=== PATIENT | female | born 1955 | race Caucasian/White ===

== ENCOUNTER 2020-12-25 08:47 | Outpatient (REF) | payer MEDICARE, BC, SELFPAY ==
[2020-12-25 10:05] LABS: MANUAL DIFF FLAG NO
[2020-12-25 10:19] LABS: Basophils Absolute Auto 0.1 X10*3/uL (0.0-0.2); Basophils Percent Auto 1.5 % (0-2); Eosinophils Absolute Auto 0.2 X10*3/uL (0.0-0.4); Eosinophils Percent Auto 6.6 % (0-4); Hematocrit 37.7 % (37-47); Hemoglobin 12.6 g/dl (12.0-16.0); Imm Gran Abs Auto 0.01 X10*3/uL (0.00-0.03); Imm Gran Pct Auto 0.3 % (0.0-0.4); Lymphocytes Absolute Auto 0.8 X10*3/uL (1.2-4.9); Lymphocytes Percent Auto 24.2 % (20-40); Mean Corpuscular HGB Conc 33.4 g/dl (31.0-35.0); Mean Corpuscular Hemoglobin 31.7 pg (27.0-33.0); Mean Corpuscular Volume 94.7 fL (80-98); Mean Platelet Volume 10.2 fL (9.4-12.3); Monocytes Absolute Auto 0.4 X10*3/uL (0.1-1.2); Monocytes Percent Auto 12.8 % (2-11); Neutrophils Absolute Auto 1.8 X10*3/uL (2.0-8.3); Neutrophils Percent Auto 54.6 % (45-73); Platelet Count 215 X10*3/uL (160-400); Red Blood Count 3.98 X10*6/uL (4.20-5.50); Red Cell Distribution Width 11.7 % (11.0-16.0); White Blood Count 3.4 X10*3/uL (4.8-10.8)
[2020-12-25 10:36] LABS: Glucose Urine UA NEG (NEG); Leukocyte Esterase Urine TRACE (NEG); Nitrite Urine NEG (NEG); UACC Culture Trigger YES; Urine Blood NEG (NEG); Urine Ketones NEG (NEG); Urine Protein NEG (NEG-TRACE)
[2020-12-25 10:45] LABS: Appearance Urine CLEAR; Color Urine STRAW
[2020-12-25 11:07] LABS: Alanine Aminotransferase 21 U/L (0-31); Albumin Level 4.2 g/dL (3.5-5.0); Alkaline Phosphatase 64 U/L (39-117); Anion Gap 12 (12-20); Aspartate Amino Transferase 22 U/L (5-31); Bilirubin Total 0.9 mg/dL (0.0-1.0); Blood Urea Nitrogen 16 mg/dL (9-16); Calcium 9.3 mg/dL (8.4-10.2); Carbon Dioxide 27 mmol/L (22-29); Chloride 104 mmol/L (96-108); Cholesterol 167 mg/dL; Estimated Glomerular Filt Rate > 60; Glucose Fasting 102 mg/dL (60-99); HDL Cholesterol 61 mg/dL; LDL Cholesterol Calculated 97 mg/dl; Potassium 4.1 mmol/L (3.3-5.1); Sodium 139 mmol/L (135-145); Total Protein 6.4 g/dL (6.5-8.0); Triglycerides 48 mg/dL
[2020-12-25 11:13] LABS: TSH reflex Free T4 1.04 uIU/mL (0.32-4.0)
[2020-12-25 11:26] LABS: RBC Urine 0-2 /HPF (0); Squamous Epithelial Cell Urine TRACE /LPF; WBC Urine 0 /HPF (0-4)
[2020-12-25 11:27] LABS: Renal Epithelial Cells Urine TRACE /LPF
== END 2020-12-25 08:48 | disposition home or self-care (01) ==
LOC: HO.LAB 08:47
PROVIDERS: PCP Internal Medicine; Visit Provider Internal Medicine
DX: I10 Essential (primary) hypertension (principal); E78.00 Pure hypercholesterolemia, unspecified
CPT/HCPCS: 36415; 80053; 80061; 81001; 84443; 85025; 87086

== ENCOUNTER 2022-01-03 07:27 | Outpatient (REF) | payer MEDICARE, BC, SELFPAY ==
[2022-01-03 08:49] LABS: Anion Gap 13 (12-20); Blood Urea Nitrogen 16 mg/dL (9-16); Calcium 8.8 mg/dL (8.4-10.2); Carbon Dioxide 28 mmol/L (22-29); Chloride 100 mmol/L (96-108); Estimated Glomerular Filt Rate > 60; Glucose Fasting 97 mg/dL (60-99); Potassium 3.8 mmol/L (3.3-5.1); Sodium 137 mmol/L (135-145)
== END 2022-01-03 07:28 | disposition home or self-care (01) ==
LOC: HO.LAB 07:27
PROVIDERS: PCP Internal Medicine; Visit Provider Nurse Practitioner Family
DX: R73.01 Impaired fasting glucose (principal)
CPT/HCPCS: 36415; 80048

== ENCOUNTER 2022-11-21 08:55 | Outpatient (REF) | payer MEDICARE, BC, SELFPAY ==
--- NOTE | 2022-11-21 09:06 | ECG_ITS ---
Test Reason : PRE OP Blood Pressure : / mmHG Vent. Rate : 062 BPM Atrial Rate : 062 BPM P-R Int : 166 ms QRS Dur : 088 ms QT Int : 378 ms P-R-T Axes : 065 004 052 degrees QTc Int : 383 ms Normal sinus rhythm Normal ECG No previous ECGs available Referred By: Stefania Vargas Electronically Signed By:ROZ FRANK MD
[2022-11-21 09:52] LABS: Prothrombin Time 11.4 SEC (10.0-13.1)
[2022-11-21 11:27] LABS: TSH reflex Free T4 1.18 uIU/mL (0.32-4.0)
[2022-11-21 12:23] LABS: Alanine Aminotransferase 15 U/L (0-31); Alkaline Phosphatase 48 U/L (39-117); Anion Gap 13 (12-20); Aspartate Amino Transferase 24 U/L (5-31); Bilirubin Total 0.9 mg/dL (0.0-1.0); Blood Urea Nitrogen 15 mg/dL (9-16); Calcium 9.6 mg/dL (8.4-10.2); Carbon Dioxide 26 mmol/L (22-29); Chloride 96 mmol/L (96-108); Estimated Glomerular Filt Rate > 60; Glucose Random 113 mg/dL (60-115); Potassium 4.3 mmol/L (3.3-5.1); Sodium 131 mmol/L (135-145); Total Protein 6.9 g/dL (6.5-8.0)
[2022-11-21 13:50] LABS: MANUAL DIFF FLAG NO
[2022-11-21 14:28] LABS: Basophils Absolute Auto 0.1 X10*3/uL (0.0-0.2); Basophils Percent Auto 1.4 % (0-2); Eosinophils Absolute Auto 0.2 X10*3/uL (0.0-0.4); Eosinophils Percent Auto 3.7 % (0-4); Hematocrit 36.8 % (37.0-47.0); Hemoglobin 12.3 g/dl (12.0-16.0); Imm Gran Abs Auto 0.02 X10*3/uL (0.00-0.03); Imm Gran Pct Auto 0.4 % (0.0-0.4); Lymphocytes Percent Auto 19.3 % (20-40); Mean Corpuscular HGB Conc 33.4 g/dl (31.0-35.0); Mean Corpuscular Hemoglobin 31.8 pg (27.0-33.0); Mean Corpuscular Volume 95.1 fL (80.0-98.0); Mean Platelet Volume 9.4 fL (9.4-12.3); Monocytes Absolute Auto 0.5 X10*3/uL (0.1-1.2); Monocytes Percent Auto 10.5 % (2-11); Neutrophils Absolute Auto 3.2 x10*3/uL (2.0-8.3); Neutrophils Percent Auto 64.7 % (45-73); Platelet Count 254 X10*3/uL (160-400); Red Blood Count 3.87 X10*6/uL (4.20-5.50); Red Cell Distribution Width 11.7 % (11.0-16.0); White Blood Count 4.9 X10*3/uL (4.8-10.8)
[2022-11-21 15:46] LABS: Anion Gap 11 (12-20); Blood Urea Nitrogen 16 mg/dL (9-16); Calcium 10.3 mg/dL (8.4-10.2); Carbon Dioxide 28 mmol/L (22-29); Chloride 94 mmol/L (96-108); Estimated Glomerular Filt Rate > 60; Glucose Random 104 mg/dL (60-115); Sodium 129 mmol/L (135-145)
== END 2022-11-21 08:56 | disposition home or self-care (01) ==
LOC: HO.LAB 08:55
PROVIDERS: PCP Internal Medicine; Visit Provider Nurse Practitioner Family
DX: Z01.818 Encounter for other preprocedural examination (principal)
CPT/HCPCS: 36415; 80048; 80053; 84443; 85025; 85610; 93005

== ENCOUNTER → 2022-11-21 09:06 | Outpatient (BNV) | payer MEDICARE, BC, SELFPAY | PROVIDERS: PCP Internal Medicine; Visit Provider Internal Medicine Cardiovascular Disease | DX: I10 Essential (primary) hypertension (principal); Z01.818 Encounter for other preprocedural examination | CPT/HCPCS: 93010 ==

== ENCOUNTER 2022-11-21 13:11 | Outpatient (AMB) | payer MEDICARE, BC, SELFPAY ==
[2022-11-21 13:15] VITALS: BP 130/72; PULSE 61; O2SAT 98; BMI 31.6
--- NOTE | 2022-11-21 13:15 | MHC.PC.OV ---
Vital Signs 11/21/22 13:15 Height 5 ft 3 in Weight 178 lb 6 oz BMI 31.6 BP 130/72 Blood Pressure Location Lt brachial Position Sitting Pulse 61 Pulse Source Pulse Oximeter Pulse Oximetry (%) 98 Oxygen Delivery Method Room Air Intake Visit Reasons: Biopsy and tear duct surgery-11/26 Clinic Md Associate Required: No Accompanied by: Self / Same As Patient Allergies Tape (adhesive) Allergy (Unknown, Uncoded 12/31/21 09:10) Itching Tobacco use date assessed: 11/21/22 Fall risk assessment: No Falls in past year Last assessed Fall Risk: 11/21/22 Dental Screening Dental Screen Date: 11/21/22 Did you have a dental visit in the last 12 months?: Yes Did you have a dental problem in the last 6 months where you did not have access to dental care?: No Was dental information given to patient?: Patient has dentist HPI HPI Comments History of Present Illness Details 67-year-old female past medical history significant for hypertension, hyperlipidemia, lumbar degenerative disc disease. Patient Dr. Willson presents today for preop visit for biopsy and tear duct surgery under [facility] on 11/26/2022 Dr. Garcia. Denies prior complications to being under anesthesia. Denies CP, palpitations, sob and syncope. EKG normal sinus rhythm Laboratory Tests 11/21/22 11/21/22 11/21/22 13:49 Unknown Unknown WBC 4.9 RBC 3.87 L Hgb 12.3 Hct 36.8 L MCV 95.1 MCH 31.8 MCHC 33.4 RDW 11.7 Plt Count 254 MPV 9.4 Immature Gran % (A uto) 0.4 Neut % (Auto) 64.7 Lymph % (Auto) 19.3 L [place] % (Auto) 10.5 Eos % (Auto) 3.7 Baso % (Auto) 1.4 Lymph # (Auto) 1.0 L [place] # (Auto) 0.5 Eos # (Auto) 0.2 Baso # (Auto) 0.1 Abs Immat Gran (au to) 0.02 Absolute Neuts (au to) 3.2 Absolute Nucleated RBC 0.000 Nucleated RBC % (a uto) 0.0 PT 11.4 INR 1.0 Sodium 131 L Potassium 4.3 Chloride 96 Carbon Dioxide 26 Anion Gap 13 BUN 15 Creatinine 0.78 Estimated GFR > 60 Random Glucose 113 Calcium 9.6 D Total Bilirubin 0.9 AST 24 ALT 15 Alkaline Phosphata se 48 Total Protein 6.9 Albumin 4.0 TSH 1.18 PFSH Medical History 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 History of right breast cancer Surgical History History of colonoscopy History of tonsillectomy Family History Mother Melanoma Father Lung cancer Sister Breast cancer Brother Prostate cancer Social History Housing: House Alcohol intake: current Alcohol intake frequency: holidays/special occasions only Patient Tobacco Use Status: Never used Tobacco e-Cigarette/Vaping Use: Never Used service: No Current occupational status: retired Current occupational exposures/hazards: No Cognitive needs: No Hearing needs: No Vision needs: No Questionnaire PHQ-9 Over the last 2 weeks, how often have you been bothered by any of the following problems? 1. Little interest or pleasure in doing things: not at all 2. Feeling down, depressed, or hopeless: not at all 3. Trouble falling or staying asleep, or sleeping too much: not at all 4. Feeling tired or having little energy: not at all 5. Poor appetite or overeating: not at all 6. Feeling bad about yourself - or that you are a failure or have let yourself or your family down: not at all 7. Trouble concentrating on things, such as reading the newspaper or watching television: not at all 8. Moving or speaking so slowly that other people could have noticed. Or the opposite - being so fidgety or restless that you have been moving around a lot more than usual: not at all 9. Thoughts that you would be better off or of hurting yourself in some way: not at all Total score: 0 Depression Screening Interpretation: Negative Source: Developed by Drs. Compa Ugarte, Millie Escalona, Ramirez Matos and colleagues, with an educational victoria from [employer]. Thrive Questionnaire Date Thrive assessed: 11/21/22 I am a: Patient What is your living situation today?: I have a steady place to live Within the past 12 months, did the food you bought not last and you didn't have the money to get more?: Never true Within the past 12 months, did you worry whether your food would run out before you got money to buy more?: Never true Do you have trouble paying for medicines?: No Do you have trouble getting transportation to medical appointments?: No Do you have trouble paying your heating and electricity bill?: No Do you have trouble taking care of your child, family member or friend?: No Do you have trouble with day-to-day activities such as bathing, preparing meals, shopping, managing finances, etc.?: No Are you currently unemployed and looking for a job?: No Are you interested in more education?: No Please select the resources that you would like help with: None Currently or been in a relationship where the following occur: no concerns reported AUDIT C Alcohol Use Questionnaire (AUDIT-C) 1. How often do you have a drink containing alcohol?: Never 3. How often do you have six or more drinks on one occasion?: Never Total Score: 0 Score Reviewed/Action Taken: No SRIKANTH-7 AMB Questionnaire SRIKANTH-7 Date SRIKANTH - 7 assessed: 11/21/22 Feeling nervous, anxious, or on edge: 0 = Not at all Not being able to stop or control worryin = Not at all Worrying too much about different things: 0 = Not at all Trouble relaxin = Not at all Being so restless that it is hard to sit still: 0 = Not at all Becoming easily annoyed or irritable: 0 = Not at all Feeling afraid as if something awful might happen: 0 = Not at all Total SRIKANTH-7 score (0-4 normal; 5-9 mild; 10-14 moderate; 15-21 severe): 0 Source: Developed by Drs. Compa Ugarte, Millie Escalona, Ramirez Matos and colleagues, with an educational victoria from [employer]. SRIKANTH-7 Assessment Billing SRIKANTH-7 Assessment Tool: SRIKANTH-7 Assessment 73086 Review of Systems Const Denies chills, Denies fatigue, Denies fever(s) and Denies poor appetite Eyes Denies no additional complaints ENT Reports Normal hearing present Card Denies chest pain, Denies syncope, Denies rapid heart rate and Denies dyspnea Resp Denies cough and Denies dyspnea GI Denies change in stool character, Denies constipation, Denies diarrhea, Denies nausea and Denies vomiting Denies urinary frequency, Denies dysuria and Denies urinary urgency Neuro Reports Normal hearing present, Denies confusion and Denies syncope Psych Denies confusion Endo Denies fatigue Physical exam (Primary Care) Vital Signs: Last Vital Signs Pulse 61 11/21/22 13:15 BP 130/72 11/21/22 13:15 Pulse Ox 98 11/21/22 13:15 Oxygen Delivery Method Room Air 11/21/22 13:15 BMI result Body Mass Index 31.6 Tobacco/Smoking Status: Tobacco use Status Tobacco use date assessed 11/21/22 11/21/22 13:20 Patient Tobacco Use Status Never used Tobacco 11/21/22 13:20 e-Cigarette/Vaping Use Never Used 11/21/22 13:20 PHQ-9: PHQ-9 Score PHQ-9: Total score 0 11/21/22 13:47 Depression Screening Interpretation: Negative Thrive Assessment: Date of Thrive Assessment Date Thrive assessed 11/21/22 11/21/22 13:20 Currently or been in a relationship where the following occur: no concerns reported Const General: No confusion Orientation/consciousness: No confusion HENMT Head: Yes normocephalic and Yes atraumatic Eyes Conjunctivae: conjunctivae normal Chest Chest palpation & inspection: normal inspection of the chest Resp Effort & Inspection: normal respiratory effort Auscultation: clear to auscultation bilaterally, no crackles, no rhonchi and no wheezes Cardio Rate: regular rate Rhythm: regular rhythm Heart sounds: S1 normal heart sound present and S2 normal heart sound present GI Inspection: Yes normal to inspection Neuro General: No confusion Cranial nerves: Yes Normal hearing present Extrem General: No edema Assessment and Plan Assessment & Plan (1) Preop examination: Code(s): Z01.818 - Encounter for other preprocedural examination Plan: Based review of blood work and EKG patient is average risk to undergo excisional biopsy neoplasm of right lower lid and stent placement. no futhure work up needed at this time and patient can proceed with scheduled surgery. (2) Hypertension: Code(s): I10 - Essential (primary) hypertension Plan: Continue on labetalol 200 mg daily. Follow low-salt diet and exercise patient's . blood pressure below goal today at 130/72/ (3) Hyperlipidemia: Code(s): E78.5 - Hyperlipidemia, unspecified Plan: Continue on atorvastatin 10 mg daily. Follow low-cholesterol diet. Plan Keep scheduled follow-up with Dr. Willson in 1 month. Orders: Orders Basic Metabolic Panel Today Z01.812 - Encounter for preprocedural laboratory examination Comprehensive Met. Panel Today Z01.812 - Encounter for preprocedural laboratory examination TSH reflex Free T4 Today Z01.812 - Encounter for preprocedural laboratory examination Prothrombin Time INR Today Z01.812 - Encounter for preprocedural laboratory examination Coding Level of Care Code Est Pt Level 3 (05803) Diagnoses Preop examination Z01.818 Hypertension I10 Hyperlipidemia E78.5 Additional Codes SRIKANTH-7 Assessment Billing - SRIKANTH-7 Assessment Tool: SRIKANTH-7 Assessment 71056 ([id number]) PHQ-9 - 21906 - PHQ-9 Billing: Y ([id number])
== END 2022-11-21 14:06 | disposition home or self-care (01) ==
PROVIDERS: PCP Internal Medicine; Visit Provider Nurse Practitioner Family
DX: Z01.818 Encounter for other preprocedural examination (principal); I10 Essential (primary) hypertension; E78.5 Hyperlipidemia, unspecified
CPT/HCPCS: 99213

== ENCOUNTER 2022-12-26 09:18 | Outpatient (REF) | payer MEDICARE, BC, SELFPAY ==
[2022-12-26 09:28] LABS: MANUAL DIFF FLAG NO
[2022-12-26 09:55] LABS: Basophils Absolute Auto 0.1 X10*3/uL (0.0-0.2); Eosinophils Absolute Auto 0.3 X10*3/uL (0.0-0.4); Eosinophils Percent Auto 7.4 % (0-4); Hematocrit 35.9 % (37.0-47.0); Hemoglobin 12.1 g/dl (12.0-16.0); Imm Gran Abs Auto 0.01 X10*3/uL (0.00-0.03); Imm Gran Pct Auto 0.2 % (0.0-0.4); Lymphocytes Absolute Auto 0.9 X10*3/uL (1.2-4.9); Lymphocytes Percent Auto 22.7 % (20-40); Mean Corpuscular HGB Conc 33.7 g/dl (31.0-35.0); Mean Corpuscular Hemoglobin 31.6 pg (27.0-33.0); Mean Corpuscular Volume 93.7 fL (80.0-98.0); Mean Platelet Volume 9.2 fL (9.4-12.3); Monocytes Absolute Auto 0.5 X10*3/uL (0.1-1.2); Monocytes Percent Auto 13.3 % (2-11); Neutrophils Absolute Auto 2.2 x10*3/uL (2.0-8.3); Neutrophils Percent Auto 54.4 % (45-73); Platelet Count 233 X10*3/uL (160-400); Red Blood Count 3.83 X10*6/uL (4.20-5.50); Red Cell Distribution Width 11.6 % (11.0-16.0); White Blood Count 4.1 X10*3/uL (4.8-10.8)
[2022-12-26 09:55] LABS: Appearance Urine Clear; Color Urine Yellow; Glucose Urine UA Negative (Negative); Leukocyte Esterase Urine Small (1+) (Negative); Nitrite Urine Negative (Negative); PH 6.5 (5.0-9.0); Specific Gravity - Urine 1.015 (1.005-1.025); UMIC TRIGGER UACC YES; Urine Blood Negative (Negative); Urine Ketones Negative (Negative); Urine Protein Negative (Neg-Trace)
[2022-12-26 10:05] LABS: Estimated Average Glucose 111 mg/dL; Hemoglobin A1c % 5.5 %
[2022-12-26 10:08] LABS: Bacteria Urine None Seen (None Seen); Hyaline Casts Urine 0-2 /LPF (0-2); RBC Urine 0-2 /HPF (0-2); Squamous Epithelial Cell Urine 0-2 /HPF (0-2); UACC Culture Trigger YES; WBC Urine 0-5 /HPF (0-5)
[2022-12-26 10:38] LABS: Alanine Aminotransferase 15 U/L (0-31); Albumin Level 4.1 g/dL (3.5-5.0); Alkaline Phosphatase 57 U/L (39-117); Anion Gap 13 (12-20); Aspartate Amino Transferase 20 U/L (5-31); Bilirubin Total 0.6 mg/dL (0.0-1.0); Blood Urea Nitrogen 12 mg/dL (9-16); Calcium 9.9 mg/dL (8.4-10.2); Carbon Dioxide 26 mmol/L (22-29); Chloride 98 mmol/L (96-108); Cholesterol 155 mg/dL; Estimated Glomerular Filt Rate > 60; Glucose Fasting 112 mg/dL (60-99); HDL Cholesterol 60 mg/dL; LDL Cholesterol Calculated 84 mg/dl; Potassium 3.9 mmol/L (3.3-5.1); Sodium 133 mmol/L (135-145); Total Protein 6.7 g/dL (6.5-8.0); Triglycerides 59 mg/dL
[2022-12-26 10:55] LABS: TSH reflex Free T4 1.07 uIU/mL (0.32-4.0)
== END 2022-12-26 09:19 | disposition home or self-care (01) ==
LOC: HO.LAB 09:18
PROVIDERS: PCP Internal Medicine; Visit Provider Internal Medicine
DX: E78.00 Pure hypercholesterolemia, unspecified (principal); E55.9 Vitamin D deficiency, unspecified; R73.01 Impaired fasting glucose; I10 Essential (primary) hypertension; R82.90 Unspecified abnormal findings in urine
CPT/HCPCS: 36415; 80053; 80061; 81001; 82306; 83036; 84443; 85025; 87086

== ENCOUNTER 2023-01-01 11:19 | Outpatient (AMB) | payer MEDICARE, BC, SELFPAY ==
[2023-01-01 11:23] VITALS: BP 128/78; PULSE 59; O2SAT 98; BMI 31.9
--- NOTE | 2023-01-01 11:24 | AM.OFFVISMDC ---
Intake Vital Signs 01/01/23 11:23 Height 5 ft 3 in Weight 180 lb 2 oz BMI 31.9 BP 128/78 Blood Pressure Location Lt brachial Position Sitting Pulse 59 Pulse Source Pulse Oximeter Pulse Oximetry (%) 98 Oxygen Delivery Method Room Air Intake Visit Reasons: [facility] Facility Manager Required: No Accompanied by: Self / Same As Patient Allergies Tape (adhesive) Allergy (Unknown, Uncoded 01/01/23 12:06) Itching Medication List - Last Reconciled 01/01/23 by Les Willson MD atorvastatin 10 mg PO DAILY cholecalciferol (vitamin D3) 50 mcg PO DAILY fexofenadine (Indy Allergy) 60 mg PO BID labetalol 200 mg PO BID omega-3 fatty acids (Fish Oil Concentrate) 1,000 mg PO DAILY spironolacton-hydrochlorothiaz 25-25 mg 1 tab PO DAILY 90 days Do you need a note to return to daycare/school/sports/work: No HPI [facility] HPI Details Patient comes in today for her Annual Medicare Wellness Exam AND follow up visit - was last seen by me via telehealth visit in January 2020 She was seen by other providers here in the practice over the past couple of years just for her annual medicare wellness exam as she mostly just comes in now once a year - states that she spends majority of her time now in [place] with her and is up here in [facility] for just 4 months out of a year Patient states that she currently feels okay She denies any headaches but reports experiencing dizziness off and on for the past few months now, especially when she bends over and gets up abruptly Has noticed very low systolic BP readings at times lately and her systolic BP has been lower than 100 mm a few times Notes that these are the times wherein she would feel very dizzy even though she is not bending over She denies any chest pains, no SOB No nausea/vomiting, no abdominal pain No change in bowel habits noted Had her follow up labs done last week - to discuss her results IPPE/AWV:? c/o of Annual Wellness Visit, subsequent visit. ? Medical / Social History Reviewed? Past Medical History? Yes . ? [place] of Care / Care Team list updated? Yes . ? Surgical/Hospitalization History? Yes . ? Current Medications (including OTC and supplements)? Yes . ? Family History? Yes . ? Tobacco Control form? Yes . ? AUDIT-C (Alcohol use) form? Yes . ? Illicit drug use in Social History? Yes . ? Current diagnosis of depression?? No ? Appropriate PHQ2/PHQ9 completed? Yes . ? Data entered by? Clinical Aide and reviewed by provider ?Home Safety? Throw rugs?? No ? Grab bars?? No ? Raised toilet seats?? No ? Working smoke detectors?? Yes ? Working carbon monoxide detectors?? Yes ? Data? entered by Clinical Aide and reviewed by provider ? Activities of Daily Living (ADLs)? Difficulty bathing or showering?? No ? Difficulty dressing?? No ? Difficulty using the toilet?? No ? Difficulty getting in and out of bed?? No ? Difficulty walking?? No ? Receives help from another person with any of the above tasks?? No ? Instrumental Activities of Daily Living (IADLs)? Uses the telephone? without help ? Gets to places out of walking distance? without help ? Goes shopping for groceries? without help ? Prepares own meals? without help ? Does own minor home maintenance? 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 History of right breast cancer Obesity (BMI 30-39.9) Pure hypercholesterolemia Skin cancer Spindle cell type atypical fibroxanthoma Vitamin D deficiency Surgical History History of colonoscopy History of tonsillectomy Family History Mother Melanoma Father Lung cancer Sister Breast cancer Brother Prostate cancer Social History Housing: House Alcohol intake: current Alcohol intake frequency: holidays/special occasions only Patient Tobacco Use Status: Never used Tobacco e-Cigarette/Vaping Use: Never Used service: No Current occupational status: retired Current occupational exposures/hazards: No Cognitive needs: No Hearing needs: No Vision needs: No Questionnaire Medicare Wellness Checkup [age] What gender do you identify with?: female During the past 4 weeks, how much have you been bothered by emotional problems such as feeling anxious, depressed, irritable, sad or downhearted, and blue?: slightly During the past 4 weeks, has your physical & emotional health limited your social activities with family, friends, neighbors, or groups?: not at all During the past 4 weeks, how much bodily pain have you generally had?: very mild pain During the past 4 weeks, was someone available to help you if you needed & wanted help?: yes, as much as I wanted During the past 4 weeks, what was the hardest physical activity you could do for at least 2 minutes?: moderate Can you get to places out of walking distance without help? (For eg., can you travel alone on buses, taxis or drive your car?): Yes Can you go shopping for groceries or clothes without someone's help?: Yes Can you prepare your own meals?: Yes Can you do your housework without help?: Yes Because of any health problems, do you need the help of another person with your personal care needs such as eating, bathing, dressing or getting around the house?: No Can you handle your own money without help?: Yes During the past 4 weeks, how would you rate your health in general?: very good During the past 4 weeks how have things been going for you?: very well; could hardly better Are you having difficulties driving your car?: no Do you always fasten your seat belt when you are in a car?: yes, usually During past 4 weeks, have you been bothered by the following: never: Sexual problems?, Trouble eating well?, Problems using the telephone? and Tiredness or fatigue?, seldom: Teeth or denture problems? and sometimes: Falling or dizzy when standing up Have you fallen 2 or more times in the past year?: No Are you afraid of falling?: No Are you a smoker?: no During the past 4 weeks, how many drinks of wine, beer, or other alcoholic beverages did you have?: 1 drink or less per week Do you exercise for about 20 minutes 3 or more times a week?: yes, most of the time Have you been given information to help with the following?: no: Hazards in your house that might hurt you? and no: Keeping track of your medications? How often do you have trouble taking medicines the way you have been told to take them?: I always take medicine as prescribed How confident are you that you can control & manage most of your health problems?: very confident What is your race?: White Mini Mental State Exam (MMSE) Orientation What is the (year) (season) (date) (day) (month)?: year, season, date, day and month Where are we (state) (county) (town or city) (hospital) (floor)?: state, county, town or city, hospital/clinic and floor Score Score: 10 Activity of Daily Living Bathing - sponge bath, tub bath or shower: receives no assistance (gets in/out by self, if usual bathing means Dressing - getting clothes from closets & drawers, including inner/outer garments & fasteners.: gets clothes & gets completely dressed without help Toileting - going to the 'toilet room' for urine/bowel elimination & cleaning self/arranging clothes: goes to toilet room, cleans self, arranges clothes without help Transfer: moves in & out of bed and chair without help (may use support object) Continence: controls urination/bowel movements completely by self Feeding: feeds self without help Total Score: 0 Information obtained from: patient Using telephone: independent Traveling: independent Shopping: independent Preparing meals: independent Housework: independent Taking medicine: independent Managing money: independent PHQ-9 Over the last 2 weeks, how often have you been bothered by any of the following problems? 1. Little interest or pleasure in doing things: not at all 2. Feeling down, depressed, or hopeless: not at all 3. Trouble falling or staying asleep, or sleeping too much: not at all 4. Feeling tired or having little energy: not at all 5. Poor appetite or overeating: not at all 6. Feeling bad about yourself - or that you are a failure or have let yourself or your family down: not at all 7. Trouble concentrating on things, such as reading the newspaper or watching television: not at all 8. Moving or speaking so slowly that other people could have noticed. Or the opposite - being so fidgety or restless that you have been moving around a lot more than usual: not at all 9. Thoughts that you would be better off or of hurting yourself in some way: not at all Total score: 0 Depression Screening Interpretation: Negative [id number] - PHQ-9 Billing: Yes Source: Developed by Drs. Compa Ugarte, Millie Escalona, Ramirez Matos and colleagues, with an educational victoria from [employer]. PHQ-2/PHQ-9 PHQ-2 Over the last 2 weeks, how often have you been bothered by any of the following problems? 1. Little interest or pleasure in doing things: not at all 2. Feeling down, depressed, or hopeless: not at all Total score: 0 If score is 3 or greater, continue 3. Trouble falling or staying asleep, or sleeping too much: not at all 4. Feeling tired or having little energy: not at all 5. Poor appetite or overeating: not at all 6. Feeling bad about yourself - or that you are a failure or have let yourself or your family down: not at all 7. Trouble concentrating on things, such as reading the newspaper or watching television: not at all 8. Moving or speaking so slowly that other people could have noticed. Or the opposite - being so fidgety or restless that you have been moving around a lot more than usual: not at all 9. Thoughts that you would be better off or of hurting yourself in some way: not at all Total score: 0 0-4 None-Minimal, 5-9 Mild, 10-14 Moderate, 15-19 Moderately Severe, 20-27 Severe Source: Developed by Drs. Compa Ugarte, Millie Escalona, Ramirez Matos and colleagues, with an educational victoria from [employer]. Thrive Questionnaire Date Thrive assessed: 01/01/23 I am a: Patient What is your living situation today?: I have a steady place to live Within the past 12 months, did the food you bought not last and you didn't have the money to get more?: Never true Within the past 12 months, did you worry whether your food would run out before you got money to buy more?: Never true Do you have trouble paying for medicines?: No Do you have trouble getting transportation to medical appointments?: No Do you have trouble paying your heating and electricity bill?: No Do you have trouble taking care of your child, family member or friend?: No Do you have trouble with day-to-day activities such as bathing, preparing meals, shopping, managing finances, etc.?: No Are you currently unemployed and looking for a job?: No Are you interested in more education?: No Please select the resources that you would like help with: None Currently or been in a relationship where the following occur: no concerns reported SRIKANTH-7 AMB Questionnaire SRIKANTH-7 Date SRIKANTH - 7 assessed: 11/21/22 Feeling nervous, anxious, or on edge: 0 = Not at all Not being able to stop or control worryin = Not at all Worrying too much about different things: 0 = Not at all Trouble relaxin = Not at all Being so restless that it is hard to sit still: 0 = Not at all Becoming easily annoyed or irritable: 0 = Not at all Feeling afraid as if something awful might happen: 0 = Not at all Total SRIKANTH-7 score (0-4 normal; 5-9 mild; 10-14 moderate; 15-21 severe): 0 Source: Developed by Drs. Compa Ugarte, Millie Escalona, Ramirez Matos and colleagues, with an educational victoria from [employer]. SRIKANTH-7 Assessment Billing SRIKANTH-7 Assessment Tool: SRIKANTH-7 Assessment 10449 Review of Systems Const Denies chills, Denies fatigue, Denies fever(s) and Denies headache(s) ENT Denies dysphagia, Reports dizziness (on and off - see HPI), Denies otalgia, Denies headache(s), Denies neck pain, Denies odynophagia and Denies sore throat Card Denies chest pain, Denies palpitations and Denies dyspnea Resp Denies cough and Denies dyspnea GI Denies abdominal pain, Denies constipation, Denies dysphagia, Denies heartburn, Denies diarrhea, Denies nausea, Denies odynophagia and Denies vomiting Denies difficulty voiding, Denies nocturia and Denies dysuria Musc Denies neck pain Neuro Reports dizziness (on and off - see HPI) and Denies headache(s) Endo Denies fatigue and Denies palpitations Physical Exam Vital Signs: Last Vital Signs Pulse 59 01/01/23 11:23 BP 128/78 01/01/23 11:23 Pulse Ox 98 01/01/23 11:23 Oxygen Delivery Method Room Air 01/01/23 11:23 BMI result Body Mass Index 31.9 IPPE/AWV: Balance Romberg Yes . Tandem walk Yes . Walk and Turn Yes . Rise from sit to stand Yes . Vision Corrective lens No Vision screen pass Hearing Whisper test pass . Urinary incont. no. EKG Not clinically necessary Const General: no acute distress and alert HEENT Ears: TM's normal bilaterally Throat: Yes posterior oropharynx normal and Yes tonsils normal (no TP congestion noted) Neck Neck: Yes no lymphadenopathy and Yes supple Resp Auscultation: clear to auscultation bilaterally, no rales and no wheezes Cardio Rate: regular rate Rhythm: regular rhythm Heart sounds: no murmurs GI Palpation (GI): Soft to palpation and nontender Auscultation: normal bowel sounds Extrem General: Yes no clubbing, cyanosis or edema Results Reviewed Results Reviewed: Laboratory Tests 12/26/22 12/26/22 12/26/22 09:26 09:27 09:27 WBC 4.1 L Hgb 12.1 Hct 35.9 L Plt Count 233 Sodium 133 L Potassium 3.9 Creatinine 0.82 Estimated GFR > 60 Fasting Glucose 112 H Hemoglobin A1c % Calcium 9.9 AST 20 ALT 15 Triglycerides 59 Cholesterol 155 LDL Cholesterol, Calc 84 HDL Cholesterol 60 25-OH Vitamin D Total 60.0 TSH 1.07 Ur Specific [place] 1.015 Urine Protein Negative Urine Glucose (UA) Negative Urine Blood Negative 12/26/22 09:27 WBC Hgb Hct Plt Count Sodium Potassium Creatinine Estimated GFR Fasting Glucose Hemoglobin A1c % 5.5 Calcium AST ALT Triglycerides Cholesterol LDL Cholesterol, Calc HDL Cholesterol 25-OH Vitamin D Total TSH Ur Specific [place] Urine Protein Urine Glucose (UA) Urine Blood Assessment & Plan Assessment & Plan (1) Medicare annual wellness visit, subsequent: Code(s): Z00.00 - Encounter for general adult medical examination without abnormal findings Plan: HRA form completed and discussed with patient; form will be scanned into patient's chart She wiil be due for repeat colonoscopy in 2 years (2024) with Dr. 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 JULIAN (2) Benign essential hypertension: Code(s): I10 - Essential (primary) hypertension Plan: Reinforced low sodium diet - goal is systolic BP of 120 mm or less Continue Labetalol 200 mg BID Was also on Spironolactone-HCTZ 25-25 mg QD but as she appears to be experiencing recurrent symptoms of orthostasis over the past few weeks that have been occurring consistently when her systolic BP readings drop down to 100 mm or less, will try eliminating her HCTZ component and just have her continue on Spironolactone 25 mg QD alone Patient is instructed to continue monitoring her blood pressure closely and to call in a few weeks if she continues to experience orthostatic symptoms and if her systolic BP still runs lower than 100 mm often (3) Pure hypercholesterolemia: Code(s): E78.00 - Pure hypercholesterolemia, unspecified Plan: Results of her labs done last week reviewed and discussed with patient Reinforced low cholesterol diet Continue Atorvastatin 10 mg QD Will have patient recheck her labs and fasting lipids in 1 year before she returns for her appointment next year (4) Impaired fasting glucose: Code(s): R73.01 - Impaired fasting glucose Plan: Hgb1c was normal at 5.3% although her FBS remains elevated at 112 mg/dl Reinforced low calorie/low carb diet, exercise as tolerated (5) Lymphedema of right arm: Code(s): I89.0 - Lymphedema, not elsewhere classified Plan: States that her arm symptoms have been adequately managed/controlled with the use of her lymphedema sleeve PRN States that her oral diuretics also help keep her swelling down (6) Lumbar degenerative disc disease: Code(s): M51.36 - Other intervertebral disc degeneration, lumbar region Plan: Reinforced activity and weight-lifting restrictions to minimize aggravating her low back pain (7) 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 She is S/P breast conserving surgery (right breast lumpectomy with sentinel node evaluation in May 2010 and completion of axillary dissection in June 2010 showing 0/5 nodes involved with tumor), external beam radiation to the right breast and supraclavicular fossa from 11/21/2010 to 01/03/2011 and dose-dense AC followed by Taxol She has completed 10 years of adjuvant Letrozole from 12/2010 to 11/2020 and also received zoledronic acid for 2 years Follow-up with oncology as scheduled for continuing surveillance and has been advised that although her situation is favorable, hormone receptor positive breast cancer can recur even up to 20-30 years later and she should continue to report any new or concerning symptoms She is up-to-date with her annual mammogram and had a negative breast ultrasound last year; will be getting a repeat mammogram and ultrasound again this year She was previously recommended to undergo breast MRI but she was not able to get it done due to claustrophobia (8) 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 8977C>T - identified in 2019 Because of her MATHEUS mutation She is being followed closely with annual mammogram and breast ultrasound; is unable to undergo breast MRI due to claustrophobia Is again advised that ovarian cancer risk is estimated to be approximately 3%. 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 and December 2018 Has a strong family Hx of melanoma - father, mother, brother and sister all had Hx of melanoma, along with other different types of cancers Follow up with dermatology regularly as scheduled for continuing surveillance (10) Allergic rhinitis: Code(s): J30.9 - Allergic rhinitis, unspecified Qualifiers: Allergic rhinitis trigger: unspecified Allergic rhinitis seasonality: unspecified Qualified Code(s): J30.9 - Allergic rhinitis, unspecified Plan: Continue Fexofenadine 60 mg BID PRN (11) Vitamin D deficiency: Code(s): E55.9 - Vitamin D deficiency, unspecified Plan: Corrected - continue Vitamin D3 2000 units QD (12) Obesity (BMI 30-39.9): Code(s): E66.9 - Obesity, unspecified Plan: Reinforced diet/exercise as tolerated/lose weight Plan To return in 1 year for her next annual medicare wellness exam AND follow up visit Orders: Orders Lipid Panel 11 Months E78.00 - Pure hypercholesterolemia, unspecified Complete Blood Count Auto Diff 11 Months I10 - Essential (primary) hypertension Comprehensive [place]. Panel Fast 11 Months E78.00 - Pure hypercholesterolemia, unspecified Hemoglobin A1c 11 Months R73.01 - Impaired fasting glucose TSH reflex Free T4 11 Months E78.00 - Pure hypercholesterolemia, unspecified UA CC w/rflx Micro + Cult 11 Months R30.0 - Dysuria Vitamin D 25-OH Total 11 Months E55.9 - Vitamin D deficiency, unspecified Medications: New spironolactone 25 mg PO DAILY 90 tabs 3RF 90 days Discontinued spironolacton-hydrochlorothiaz 25-25 mg 1 tablet orally once a day Discontinued Reason: Doctor's Order 1 tab PO DAILY 90 days 90 tabs 3RF Quality Reporting (2019) Depression/Bipolar (159/160/161/177) PHQ-9: Total score: 0 Coding Level of Care Code Medicare Subsequent (G0439) Est Pt Level 4 (76421) Diagnoses Medicare annual wellness visit, subsequent Z00.00 Benign essential hypertension I10 Pure hypercholesterolemia E78.00 Impaired fasting glucose R73.01 Lymphedema of right arm I89.0 Lumbar degenerative disc disease M51.36 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
== END 2023-01-01 12:32 | disposition home or self-care (01) ==
PROVIDERS: Visit Provider Internal Medicine
DX: Z00.00 Encounter for general adult medical examination without abnormal findings (principal); I10 Essential (primary) hypertension; C50.919 Malignant neoplasm of unspecified site of unspecified female breast; E55.9 Vitamin D deficiency, unspecified; E78.00 Pure hypercholesterolemia, unspecified; R73.01 Impaired fasting glucose; I89.0 Lymphedema, not elsewhere classified; M51.36 Other intervertebral disc degeneration, lumbar region; D05.10 Intraductal carcinoma in situ of unspecified breast; C44.90 Unspecified malignant neoplasm of skin, unspecified; J30.9 Allergic rhinitis, unspecified; E66.9 Obesity, unspecified
CPT/HCPCS: G0439

== ENCOUNTER 2024-01-22 08:30 | Outpatient (REF) | payer MEDICARE, BC, SELFPAY ==
[2024-01-22 08:47] LABS: MANUAL DIFF FLAG NO
[2024-01-22 09:23] LABS: Basophils Absolute Auto 0.1 X10*3/uL (0.0-0.2); Eosinophils Absolute Auto 0.2 X10*3/uL (0.0-0.4); Eosinophils Percent Auto 6.2 % (0-4); Hematocrit 37.3 % (37.0-47.0); Hemoglobin 12.6 g/dl (12.0-16.0); Imm Gran Abs Auto 0.01 X10*3/uL (0.00-0.03); Imm Gran Pct Auto 0.3 % (0.0-0.4); Lymphocytes Absolute Auto 0.8 X10*3/uL (1.2-4.9); Lymphocytes Percent Auto 22.3 % (20-40); Mean Corpuscular HGB Conc 33.8 g/dl (31.0-35.0); Mean Corpuscular Hemoglobin 32.5 pg (27.0-33.0); Mean Corpuscular Volume 96.1 fL (80.0-98.0); Mean Platelet Volume 10.2 fL (9.4-12.3); Monocytes Absolute Auto 0.5 X10*3/uL (0.1-1.2); Monocytes Percent Auto 13.3 % (2-11); Neutrophils Percent Auto 55.9 % (45-73); Platelet Count 189 X10*3/uL (160-400); Red Blood Count 3.88 X10*6/uL (4.20-5.50); Red Cell Distribution Width 11.9 % (11.0-16.0); White Blood Count 3.5 X10*3/uL (4.8-10.8)
[2024-01-22 09:30] LABS: Appearance Urine Clear; Color Urine Yellow; Glucose Urine UA Negative (Negative); Leukocyte Esterase Urine Trace (Negative); Nitrite Urine Negative (Negative); UMIC TRIGGER UACC YES; Urine Blood Negative (Negative); Urine Ketones Negative (Negative); Urine Protein Negative (Neg-Trace)
[2024-01-22 09:32] LABS: Estimated Average Glucose 111 mg/dL; Hemoglobin A1c % 5.5 % (<6.0)
[2024-01-22 09:33] LABS: Bacteria Urine None Seen (None Seen); Hyaline Casts Urine 0-2 /LPF (0-2); RBC Urine 0-2 /HPF (0-2); Squamous Epithelial Cell Urine 0-2 /HPF (0-2); WBC Urine 0-5 /HPF (0-5)
[2024-01-22 09:59] LABS: Alanine Aminotransferase 13 U/L (0-31); Alkaline Phosphatase 55 U/L (39-117); Anion Gap 12 (12-20); Aspartate Amino Transferase 19 U/L (5-31); Bilirubin Total 0.7 mg/dL (0.0-1.0); Blood Urea Nitrogen 13 mg/dL (9-16); Calcium 9.7 mg/dL (8.4-10.2); Carbon Dioxide 27 mmol/L (22-29); Chloride 108 mmol/L (96-108); Cholesterol 167 mg/dL (<200); Estimated Glomerular Filt Rate > 60; Glucose Fasting 105 mg/dL (60-99); HDL Cholesterol 57 mg/dL (>40); LDL Cholesterol Calculated 102 mg/dL (<100); Potassium 3.9 mmol/L (3.3-5.1); Sodium 143 mmol/L (135-145); Total Protein 6.4 g/dL (6.5-8.0); Triglycerides 44 mg/dL (<150)
[2024-01-22 10:17] LABS: TSH reflex Free T4 1.33 uIU/mL (0.32-4.0); Vitamin D 25-OH Total 58.1 ng/mL (>30)
== END 2024-01-22 08:31 | disposition home or self-care (01) ==
LOC: HO.LAB 08:30
PROVIDERS: PCP Internal Medicine; Visit Provider Internal Medicine
DX: I10 Essential (primary) hypertension (principal); E55.9 Vitamin D deficiency, unspecified; R73.01 Impaired fasting glucose; E78.00 Pure hypercholesterolemia, unspecified
CPT/HCPCS: 36415; 80053; 80061; 81001; 82306; 83036; 84443; 85025

== ENCOUNTER 2024-01-26 10:45 | Outpatient (AMB) | payer MEDICARE, BC, SELFPAY ==
--- NOTE | 2024-01-26 10:56 | MHC.PC.OV ---
Vital Signs 01/26/24 10:57 Height 5 ft 3 in Weight 177 lb 2 oz BMI 31.4 BP 122/80 Blood Pressure Location Lt brachial Position Sitting Pulse 62 Pulse Source Pulse Oximeter Pulse Oximetry (%) 98 Oxygen Delivery Method Room Air Intake Visit Reasons: Follow Up - see comments Emergency Medical Services Coordinator Required: No Accompanied by: Self / Same As Patient Allergies Tape (adhesive) Allergy (Unknown, Uncoded 01/26/24 11:26) Itching Medication List - Last Reconciled 01/26/24 by Les Willson MD atorvastatin 10 mg PO DAILY cholecalciferol (vitamin D3) 50 mcg PO DAILY fexofenadine (Indy Allergy) 60 mg PO BID labetalol 200 mg PO BID losartan 50 mg PO DAILY omega-3 fatty acids (Fish Oil Concentrate) 1,000 mg PO DAILY spironolactone 25 mg PO DAILY 90 days Tobacco use date assessed: 01/26/24 Fall risk assessment: No Falls in past year Last assessed Fall Risk: 01/26/24 Dental Screening Dental Screen Date: 01/26/24 Did you have a dental visit in the last 12 months?: Yes Did you have a dental problem in the last 6 months where you did not have access to dental care?: No Was dental information given to patient?: Patient has dentist HPI Follow Up - see comments HPI Details Patient comes in today for her follow up visit States that she feels okay and is getting ready again to head down to [place], [place] with her in a few weeks on 02/10/2024, where they will stay for the fall and winter Plans to come back up here to [facility] next year in early September 2024 She denies any headaches or dizziness Denies any chest pains, no SOB No nausea/vomiting, no abdominal pain No change in bowel habits noted Needs a couple of her Rx refilled She also brought in a copy of her labs done back in August 2023 when she was still down in [place] - would like to have these scanned into her chart for documentation She was also recently seen by Dr. Johnnie Henning (oncologist) at the [facility] in [place] for follow up a couple of months ago - was apparently advised that she does not really need to continue to follow up with them in the future as she spends majority of her time now down in [place] but is advised that she should get established with a medical oncologist down in [place] as soon as possible She had her follow up labs done a few days ago - to discuss her results [facility] Medical History Obesity (BMI 30-39.9) Vitamin D deficiency Skin cancer Spindle cell type atypical fibroxanthoma Pure hypercholesterolemia Benign essential hypertension 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 History of right breast cancer 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 Surgical History History of colonoscopy History of tonsillectomy Family History Mother Melanoma Father Lung cancer Sister Breast cancer Brother Prostate cancer Social History Housing: House Alcohol intake: current Alcohol intake frequency: holidays/special occasions only Patient Tobacco Use Status: Never used Tobacco e-Cigarette/Vaping Use: Never Used service: No Current occupational status: retired Current occupational exposures/hazards: No Cognitive needs: No Hearing needs: No Vision needs: No Questionnaire PHQ-9 Over the last 2 weeks, how often have you been bothered by any of the following problems? 1. Little interest or pleasure in doing things: not at all 2. Feeling down, depressed, or hopeless: not at all 3. Trouble falling or staying asleep, or sleeping too much: not at all 4. Feeling tired or having little energy: not at all 5. Poor appetite or overeating: not at all 6. Feeling bad about yourself - or that you are a failure or have let yourself or your family down: not at all 7. Trouble concentrating on things, such as reading the newspaper or watching television: not at all 8. Moving or speaking so slowly that other people could have noticed. Or the opposite - being so fidgety or restless that you have been moving around a lot more than usual: not at all 9. Thoughts that you would be better off or of hurting yourself in some way: not at all Total score: 0 Depression Screening Interpretation: Negative Depression Screening Done: Yes 21670 - PHQ-9 Billing: Yes Source: Developed by Drs. Compa Ugarte, Millie Escalona, Ramirez Matos and colleagues, with an educational victoria from [employer]. Thrive Questionnaire Date Thrive assessed: 01/26/24 I am a: Patient What is your living situation today?: I have a steady place to live Within the past 12 months, did the food you bought not last and you didn't have the money to get more?: Never true Within the past 12 months, did you worry whether your food would run out before you got money to buy more?: Never true Do you have trouble paying for medicines?: No Do you have trouble getting transportation to medical appointments?: No Do you have trouble paying your heating and electricity bill?: No Do you have trouble taking care of your child, family member or friend?: No Do you have trouble with day-to-day activities such as bathing, preparing meals, shopping, managing finances, etc.?: No Are you currently unemployed and looking for a job?: No Are you interested in more education?: No Please select the resources that you would like help with: None Currently or been in a relationship where the following occur: No concerns reported THRIVE Score: 0 AUDIT C Alcohol Use Questionnaire (AUDIT-C) 1. How often do you have a drink containing alcohol?: 2-4 times a month 2. How many drinks containing alcohol do you have on a typical day when you are drinking?: 1 or 2 3. How often do you have six or more drinks on one occasion?: Never Total Score: 2 Score Reviewed/Action Taken: Yes SRIKANTH-7 AMB Questionnaire SRIKANTH-7 Date SRIKANTH - 7 assessed: 01/26/24 Feeling nervous, anxious, or on edge: 0 = Not at all Not being able to stop or control worryin = Not at all Worrying too much about different things: 0 = Not at all Trouble relaxin = Not at all Being so restless that it is hard to sit still: 0 = Not at all Becoming easily annoyed or irritable: 0 = Not at all Feeling afraid as if something awful might happen: 0 = Not at all Total SRIKANTH-7 score (0-4 normal; 5-9 mild; 10-14 moderate; 15-21 severe): 0 Source: Developed by Drs. Compa Ugarte, Millie Escalona, Ramirez Matos and colleagues, with an educational victoria from [employer]. SRIKANTH-7 Assessment Billing SRIKANTH-7 Assessment Tool: SRIKANTH-7 Assessment 72153 Review of Systems Const Denies chills, Denies fatigue, Denies fever(s) and Denies headache(s) ENT Denies dysphagia, Denies dizziness, Denies otalgia, Denies headache(s), Denies neck pain, Denies odynophagia and Denies sore throat Card Denies chest pain, Denies palpitations and Denies dyspnea Resp Denies cough and Denies dyspnea GI Denies abdominal pain, Denies constipation, Denies dysphagia, Denies heartburn, Denies diarrhea, Denies nausea, Denies odynophagia and Denies vomiting Denies difficulty voiding, Denies nocturia, Denies dysuria and Denies urinary urgency Musc Denies back pain and Denies neck pain Skin/Breast Denies rash Neuro Denies dizziness and Denies headache(s) Endo Denies fatigue and Denies palpitations Physical exam (Primary Care) Vital Signs: Last Vital Signs Pulse 62 01/26/24 10:57 BP 122/80 01/26/24 10:57 Pulse Ox 98 01/26/24 10:57 Oxygen Delivery Method Room Air 01/26/24 10:57 BMI result Body Mass Index 31.4 Tobacco/Smoking Status: Tobacco use Status Tobacco use date assessed 01/26/24 01/26/24 11:02 Patient Tobacco Use Status Never used Tobacco 01/26/24 11:02 e-Cigarette/Vaping Use Never Used 01/26/24 11:02 PHQ-9: PHQ-9 Score PHQ-9: Total score 0 01/26/24 11:02 Depression Screening Interpretation: Negative Thrive Assessment: Date of Thrive Assessment Date Thrive assessed 01/26/24 01/26/24 11:02 Currently or been in a relationship where the following occur: No concerns reported Const General: no acute distress and alert HENMT Ears: TM's normal bilaterally and EAC's normal Throat: Yes posterior oropharynx normal and Yes tonsils normal (no TP congestion) Neck Neck: Yes no lymphadenopathy and Yes supple Thyroid: Thyroid normal Resp Auscultation: clear to auscultation bilaterally, no rales and no wheezes Cardio Rate: regular rate Rhythm: regular rhythm Heart sounds: no murmurs GI Palpation (GI): Soft to palpation and nontender Auscultation: normal bowel sounds General: Yes no CVA tenderness Back/Spine/Pelvis Back: no CVA tenderness Thoracic/Lumbar Spine: No lumbar spinal tenderness Skin Rashes: no rashes Extrem General: Yes no clubbing, cyanosis or edema Results Reviewed Results Reviewed: Laboratory Tests 01/22/24 01/22/24 08:46 08:47 WBC 3.5 L Hgb 12.6 Hct 37.3 Plt Count 189 Sodium 143 Potassium 3.9 Creatinine 0.76 Estimated GFR > 60 Fasting Glucose 105 H Hemoglobin A1c % 5.5 Calcium 9.7 AST 19 ALT 13 Triglycerides 44 Cholesterol 167 LDL Cholesterol, Calc 102 H HDL Cholesterol 57 25-OH Vitamin D Total 58.1 TSH 1.33 Ur Specific [place] 1.010 Urine Protein Negative Urine Glucose (UA) Negative Urine Blood Negative Urine Nitrite Negative Ur Leukocyte Esterase Trace H Assessment and Plan Assessment & Plan (1) Benign essential hypertension: Code(s): I10 - Essential (primary) hypertension Plan: Reinforced low sodium diet - goal is systolic BP of 120 mm or less Continue Labetalol 200 mg BID and Spironolactone 25 mg QD She was also started additionally on Losartan 50 mg QD by her doctor down in [place] in back in April 2023 when her blood pressure was apparently running higher than recommended often States that she has not had any problems with the medication so far and her blood pressure readings seem to be better lately She is reminded to continue monitoring her blood pressure regularly (2) Pure hypercholesterolemia: Code(s): E78.00 - Pure hypercholesterolemia, unspecified Plan: Results of her labs done a few days ago reviewed and discussed with patient - she is cautioned that her LDL cholesterol level has increased slightly from previous States that she has been going out to eat with her friends here often ever since she got back up from [place] a few months ago Reinforced low cholesterol diet Continue Atorvastatin 10 mg QD Will have her recheck her labs and fasting lipids in early September 2024 when she returns up here to [facility] from [place] (3) Impaired fasting glucose: Code(s): R73.01 - Impaired fasting glucose Plan: Her FBS was slightly elevated at 105 mg/dl but her HgbA1c was still normal at 5.5% on her labs done a few days ago Reinforced low calorie/low card diet (4) Lymphedema of right arm: Code(s): I89.0 - Lymphedema, not elsewhere classified Plan: States that her right arm swelling has been adequately managed/controlled with the use of her lymphedema sleeve PRN States that her oral diuretics also help keep the swelling down (5) Lumbar degenerative disc disease: Code(s): M51.36 - Other intervertebral disc degeneration, lumbar region Plan: Reinforced activity and weight-lifting restrictions to minimize aggravating her low back pain (6) 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 She is S/P breast conserving surgery (right breast lumpectomy with sentinel node evaluation in May 2010 and completion of axillary node dissection in June 2010 showing 0/5 nodes involved with tumor), external beam radiation to the right breast and supraclavicular fossa from 11/21/2010 to 01/03/2011 and dose-dense AC followed by Taxol She has completed 10 years of adjuvant Letrozole from 12/2010 to 11/2020 and also received zoledronic acid for 2 years She has been advised that although her situation is favorable, hormone receptor positive breast cancer can recur even up to 20-30 years later and she should continue to report any new or concerning symptoms She is up-to-date with her annual mammogram and had a negative breast ultrasound last year as well as this year She was previously recommended to undergo breast MRI but she was not able to get it done due to claustrophobia and she understands the limitations of ultrasonography as compared to an MRI (7) 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 8977C>T - identified in 2019 Because of her MATHEUS mutation, she is being followed closely with annual mammogram and breast ultrasound; she is unable to undergo breast MRI due to significant claustrophobia She has been advised that ovarian cancer risk is estimated to be approximately 3%. 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 in October 2018 and December 2018 Has a strong family Hx of melanoma - father, mother, brother and sister all had Hx of melanoma, along with other different types of cancers Follow up with dermatology regularly as scheduled for continuing surveillance (9) Vitamin D deficiency: Code(s): E55.9 - Vitamin D deficiency, unspecified Plan: Continue Vitamin D3 2000 units QD (10) Allergic rhinitis: Code(s): J30.9 - Allergic rhinitis, unspecified Qualifiers: Allergic rhinitis trigger: unspecified Allergic rhinitis seasonality: unspecified Qualified Code(s): J30.9 - Allergic rhinitis, unspecified Plan: Continue Fexofenadine 60 mg BID PRN Plan To return as scheduled in September 2024 for her next Annual Medicare Wellness exam AND follow up visit Orders: Orders Comprehensive [place]. Panel Fast 09/10/24 E78.00 - Pure hypercholesterolemia, unspecified UA CC w/rflx Micro + Cult 09/10/24 R30.0 - Dysuria Complete Blood Count Auto Diff 09/10/24 D64.9 - Anemia, unspecified Lipid Panel 09/10/24 E78.00 - Pure hypercholesterolemia, unspecified TSH reflex Free T4 09/10/24 E78.00 - Pure hypercholesterolemia, unspecified Hemoglobin A1c 09/10/24 E11.9 - Type 2 diabetes mellitus without complications Vitamin D 25-OH Total 09/10/24 E55.9 - Vitamin D deficiency, unspecified Medications: Changed From atorvastatin 10 mg PO DAILY 90 tabs 1RF To atorvastatin 10 mg PO DAILY 90 days 90 tabs 1RF Refilled spironolactone 25 mg PO DAILY 90 days 90 tabs 1RF Coding Level of Care Code Est Pt Level 4 (91364) Complex EM visit Add On G2211 Diagnoses Benign essential hypertension I10 Pure hypercholesterolemia E78.00 Impaired fasting glucose R73.01 Lymphedema of right arm I89.0 Lumbar degenerative disc disease M51.36 Ductal carcinoma in situ (DCIS) of right breast with microinvasive component C50.911 Laterality: right 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
[2024-01-26 10:57] VITALS: BP 122/80; PULSE 62; O2SAT 98; BMI 31.4
== END 2024-01-26 11:48 | disposition home or self-care (01) ==
PROVIDERS: PCP Internal Medicine; Visit Provider Internal Medicine
DX: I10 Essential (primary) hypertension (principal); E78.00 Pure hypercholesterolemia, unspecified; R73.01 Impaired fasting glucose; I89.0 Lymphedema, not elsewhere classified; M51.36 Other intervertebral disc degeneration, lumbar region; C50.911 Malignant neoplasm of unspecified site of right female breast; C50.919 Malignant neoplasm of unspecified site of unspecified female breast; C44.90 Unspecified malignant neoplasm of skin, unspecified; E55.9 Vitamin D deficiency, unspecified; J30.9 Allergic rhinitis, unspecified

== ENCOUNTER → 2024-01-26 10:45 | Outpatient (BNVA) | payer MEDICARE, BC, SELFPAY | PROVIDERS: PCP Internal Medicine; Visit Provider Internal Medicine | DX: I10 Essential (primary) hypertension (principal); E78.00 Pure hypercholesterolemia, unspecified; R73.01 Impaired fasting glucose; I89.0 Lymphedema, not elsewhere classified; M51.36 Other intervertebral disc degeneration, lumbar region; Z85.3 Personal history of malignant neoplasm of breast; E55.9 Vitamin D deficiency, unspecified; J30.9 Allergic rhinitis, unspecified; Z79.899 Other long term (current) drug therapy | CPT/HCPCS: 96127; 99212 ==

== ENCOUNTER 2024-09-22 10:14 | Outpatient (REF) | payer MEDICARE, BC, SELFPAY ==
[2024-09-22 10:37] LABS: MANUAL DIFF FLAG NO
[2024-09-22 11:05] LABS: Basophils Absolute Auto 0.1 X10*3/uL (0.0-0.2); Basophils Percent Auto 1.8 % (0-2); Eosinophils Absolute Auto 0.2 X10*3/uL (0.0-0.4); Eosinophils Percent Auto 6.2 % (0-4); Hemoglobin 10.9 g/dl (12.0-16.0); Imm Gran Abs Auto 0.01 X10*3/uL (0.00-0.03); Imm Gran Pct Auto 0.3 % (0.0-0.4); Lymphocytes Absolute Auto 0.8 X10*3/uL (1.2-4.9); Lymphocytes Percent Auto 24.4 % (20-40); Mean Corpuscular Hemoglobin 31.9 pg (27.0-33.0); Mean Corpuscular Volume 96.5 fL (80.0-98.0); Mean Platelet Volume 9.6 fL (9.4-12.3); Monocytes Absolute Auto 0.4 X10*3/uL (0.1-1.2); Monocytes Percent Auto 12.9 % (2-11); Neutrophils Absolute Auto 1.9 x10*3/uL (2.0-8.3); Neutrophils Percent Auto 54.4 % (45-73); Platelet Count 193 X10*3/uL (160-400); Red Blood Count 3.42 X10*6/uL (4.20-5.50); Red Cell Distribution Width 12.1 % (11.0-16.0); White Blood Count 3.4 X10*3/uL (4.8-10.8)
--- OUTSIDE RECORDS SUMMARY | 2024-09-22 11:14 | XMS_ITS | Patient Health Record ---
Author Organization [facility] Address [address] [place] [address] Care Team Providers Care Agriculture Laboratory Technician Name Role Phone Demetris BRO, Les Primary Care Provider Compa Casillas Unavailable [phone] Allergies Allergen (clinical drug ingredient) Drug/Non Drug Allergy documented on EMR Reaction Allergy Type Onset Date Status surgical tape (uncoded) Unknown Allergy Active Reason For Referral No Information Medications Medication SIG (Take, Route, Frequency, Duration) Notes Start Date End Date Status Glucosamine Chondr 500 Complex - as directed Orally Active Spironolactone-HCTZ 25-25 MG 1 tablet Orally Once a day Active Calcium 600 + D 600-200 MG-UNIT Orally Active Vitamin D 2000 UNIT Orally Active Atorvastatin Calcium 10 MG TAKE 1 TABLET BY MOUTH DAILY Oral for 30 Active Indy Active Letrozole 2.5 MG 1 tablet Orally Once a day Active Labetalol HCl 200 MG Orally Active Fish Oil 1000 MG 1 capsule Orally Onc e a day Active Immunizations Vaccine Route Administration Date Status Comme nts Influenza Unknown 02/09/2019 Administered Problems Problem Type SNOMED Code ICD Code Onset Dates Problem Status W/U Status Risk Notes Problem [id number] Encounter for screening for malignant neoplasm of colon (Z12.11) Active confirmed Problem [id number] History of adenomatous polyp of colon (Z86.010) Active confirmed Problem [id number] High risk medications (not anticoagulants) long-term use (Z79.899) Active confirmed Plan Of Treatment Pending Test Test Name Order Date GI BIOPSY 12/14/2019 Future Test Test Name Order Date COLONOSCOPY 10/26/2014 COLONOSCOPY 12/08/2019 Next Appt Details Provider Name:Compa Jain , 09/27/2024 09:10:00 AM, [address], [address], [place], [address], Insurance Providers Payer Name Payer Address Payer Phone Subscriber Number Group Number Insured Name Patient Relationship to Insured Coverage Start Date Coverage End Date MEDICARE OF [place] [address] [place] [address] [id number] SALVADOR ERICKSON Self - patient is the insured [facility] [address] [place], [place] [id number] [phone] [id number] SALVADOR ERICKSON Self - patient is the insured Medical (General) History Medical History History ICD Code Screening colonoscopy 12-18-19 04--neg. except for sigmoid diverticulosis and internal/external hemorrhoids Hypertension Right-sided breast cancer 04/2010-lumpec franklyn, XRT, chemo- Denies MN,DM,CVA,Lung disease,renal dise ase Lymphedema in right arm Colonoscopy in 12/2014-1 small tubular ad enoma removed Surgical History Surgery Date(Month/Year) Lumpectomy, right breast--as above Cyst removal Skin cancers-squamous and spindle cell
[2024-09-22 11:15] LABS: Estimated Average Glucose 114 mg/dL; Hemoglobin A1C 112.9206 umol/L; Hemoglobin A1c % 5.6 % (<6.0)
[2024-09-22 11:35] LABS: Appearance Urine Clear; Color Urine Yellow; Glucose Urine UA Negative (Negative); Leukocyte Esterase Urine Trace (Negative); Nitrite Urine Negative (Negative); PH 7.5 (5.0-9.0); UMIC TRIGGER UACC YES; Urine Blood Negative (Negative); Urine Ketones Negative (Negative); Urine Protein Negative (Neg-Trace)
[2024-09-22 11:42] LABS: Bacteria Urine None Seen (None Seen); Hyaline Casts Urine 0-2 /LPF (0-2); RBC Urine 0-2 /HPF (0-2); Squamous Epithelial Cell Urine 0-2 /HPF (0-2); WBC Urine 0-5 /HPF (0-5)
[2024-09-22 11:43] LABS: Alanine Aminotransferase 14 U/L (0-31); Albumin Level 3.8 g/dL (3.5-5.0); Alkaline Phosphatase 58 U/L (39-117); Anion Gap 10 (12-20); Aspartate Amino Transferase 22 U/L (5-31); Bilirubin Total 0.6 mg/dL (0.0-1.0); Blood Urea Nitrogen 11 mg/dL (9-16); Calcium 9.1 mg/dL (8.4-10.2); Carbon Dioxide 28 mmol/L (22-29); Chloride 107 mmol/L (96-108); Cholesterol 141 mg/dL (<200); Estimated Glomerular Filt Rate > 60; Glucose Fasting 103 mg/dL (60-99); HDL Cholesterol 49 mg/dL (>40); LDL Cholesterol Calculated 82 mg/dL (<100); Potassium 3.9 mmol/L (3.3-5.1); Sodium 141 mmol/L (135-145); Total Protein 6.2 g/dL (6.5-8.0); Triglycerides 51 mg/dL (<150)
[2024-09-22 11:59] LABS: TSH reflex Free T4 1.08 uIU/mL (0.32-4.0); Vitamin D 25-OH Total 49.8 ng/mL (>30)
== END 2024-09-22 10:15 | disposition home or self-care (01) ==
LOC: HO.LAB 10:14
PROVIDERS: PCP Internal Medicine; Visit Provider Internal Medicine
DX: E11.9 Type 2 diabetes mellitus without complications (principal); E78.00 Pure hypercholesterolemia, unspecified; E55.9 Vitamin D deficiency, unspecified; D64.9 Anemia, unspecified
CPT/HCPCS: 36415; 80053; 80061; 81001; 82306; 83036; 84443; 85025

== ENCOUNTER 2024-09-26 09:19 | Outpatient (AMB) | payer MEDICARE, BC, SELFPAY ==
[2024-09-26 09:28] VITALS: BP 128/86; PULSE 71; O2SAT 99; BMI 29.8
--- NOTE | 2024-09-26 09:29 | A.OFFVIS_ITS ---
Intake Vital Signs 09/26/24 09:28 Height 5 ft 3 in Weight 168 lb 2 oz BMI 29.8 BP 128/86 Blood Pressure Location Lt brachial Position Sitting Pulse 71 Pulse Source Pulse Oximeter Pulse Oximetry (%) 99 Oxygen Delivery Method Room Air Intake Visit Reasons: [facility] G0439 It Program Engagement Director Required: No Accompanied by: Self / Same As Patient Allergies Tape (adhesive) Allergy (Unknown, Uncoded 09/26/24 10:03) Itching Medication List - Last Reconciled 09/26/24 by Les Willson MD atorvastatin 10 mg PO DAILY 90 days U1-xkybxza-cssdcc-ALA-benfotia 53-5-5-300-150 mg (EB-N6 ) 1 cap PO BID cholecalciferol (vitamin D3) 50 mcg PO DAILY fexofenadine (Indy Allergy) 60 mg PO BID labetalol 200 mg PO BID losartan 50 mg PO DAILY omega-3 fatty acids (Fish Oil Concentrate) 1,000 mg PO DAILY spironolactone 25 mg PO DAILY 90 days Do you need a note to return to daycare/school/sports/work: No HPI [facility] G0439 HPI Details Patient comes in today for her Annual Medicare Wellness Exam AND follow up visit States that she feels okay but notes that her neuropathy has progressed significantly over the past year and she now has a hard time walking as a result States that she does not really have any significant pain in her feet and that they are mostly numb constantly She is still able to get around but states that she moves much slower now than before She has been started on some supplements called EB-N6 by her exercise science instructor in [place] to see if this will help She denies any headaches or dizziness Denies any chest pains, no increased SOB No nausea/vomiting, no abdominal pain No change in bowel habits noted She had her follow up labs done a few days ago - to discuss her results ---- Saxman of care was reviewed and updated today Patient has a healthcare proxy and MOLST forms in place and on file IPPE/AWV: c/o of Annual Wellness Visit, subsequent visit. Medical / Social History Reviewed Past Medical History Yes . Saxman of Care / Care Team list updated Yes . Surgical/Hospitalization History Yes . Current Medications (including OTC and supplements) Yes . Family History Yes . Tobacco Control form Yes . AUDIT-C (Alcohol use) form Yes . Illicit drug use in Social History Yes . Current diagnosis of depression? No Appropriate PHQ2/PHQ9 completed Yes . Data entered by Magn[employer] and reviewed by provider Home Safety Throw rugs? No Grab bars? No Raised toilet seats? No Working smoke detectors? Yes Working carbon monoxide detectors? Yes Data entered by Magnet Pl[employer] and reviewed by provider Activities of Daily Living (ADLs) Difficulty bathing or showering? No Difficulty dressing? No Difficulty using the toilet? No Difficulty getting in and out of bed? No Difficulty walking? No Receives help from another person with any of the above tasks? No Instrumental Activities of Daily Living (IADLs) Uses the telephone without help Gets to places out of walking distance without help Goes shopping for groceries without help Prepares own meals without help Does own minor home maintenance without help Does own laundry without help Does own housework without help Manages own money without help Currently takes medications? Yes Takes medication without help End-of-Life Planning Discussed advance directive Yes Advance directive on file Discussed wishes expressed in advance directive agreed to following patient's wishes Fall Risk: Fall History Have you had any falls with injury in the past year? No . Have you had two or more falls in the past year? No . Fall Risk Assessment: No falls in the past year . HRA filled out by the patient, reviewed by Provider and scanned. 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: female During the past 4 weeks, how much have you been bothered by emotional problems such as feeling anxious, depressed, irritable, sad or downhearted, and blue?: not at all During the past 4 weeks, has your physical & emotional health limited your social activities with family, friends, neighbors, or groups?: slightly During the past 4 weeks, how much bodily pain have you generally had?: very mild pain During the past 4 weeks, was someone available to help you if you needed & wanted help?: yes, as much as I wanted During the past 4 weeks, what was the hardest physical activity you could do for at least 2 minutes?: moderate Can you get to places out of walking distance without help? (For eg., can you travel alone on buses, taxis or drive your car?): Yes Can you go shopping for groceries or clothes without someone's help?: Yes Can you prepare your own meals?: Yes Can you do your housework without help?: Yes Because of any health problems, do you need the help of another person with your personal care needs such as eating, bathing, dressing or getting around the house?: No Can you handle your own money without help?: Yes During the past 4 weeks, how would you rate your health in general?: very good During the past 4 weeks how have things been going for you?: pretty well Are you having difficulties driving your car?: no Do you always fasten your seat belt when you are in a car?: yes, usually During past 4 weeks, have you been bothered by the following: never: Falling or dizzy when standing up, Sexual problems?, Trouble eating well?, Teeth or denture problems?, Problems using the telephone? and Tiredness or fatigue? Have you fallen 2 or more times in the past year?: Yes Are you afraid of falling?: No Are you a smoker?: no During the past 4 weeks, how many drinks of wine, beer, or other alcoholic beverages did you have?: 1 drink or less per week Do you exercise for about 20 minutes 3 or more times a week?: yes, most of the time Have you been given information to help with the following?: no: Hazards in your house that might hurt you? and no: Keeping track of your medications? How often do you have trouble taking medicines the way you have been told to take them?: I always take medicine as prescribed How confident are you that you can control & manage most of your health problems?: very confident What is your race?: White Mini Mental State Exam (MMSE) Orientation What is the (year) (season) (date) (day) (month)?: year, season, date, day and month Where are we (state) (county) (town or city) (hospital) (floor)?: state, county, town or city, hospital/clinic and floor Score Score: 10 Activity of Daily Living Bathing - sponge bath, tub bath or shower: receives no assistance (gets in/out by self, if usual bathing means Dressing - getting clothes from closets & drawers, including inner/outer garments & fasteners.: gets clothes & gets completely dressed without help Toileting - going to the 'toilet room' for urine/bowel elimination & cleaning self/arranging clothes: goes to toilet room, cleans self, arranges clothes without help Transfer: moves in & out of bed and chair without help (may use support object) Continence: controls urination/bowel movements completely by self Feeding: feeds self without help Total Score: 0 Information obtained from: patient Using telephone: independent Traveling: independent Shopping: independent Preparing meals: independent Housework: independent Taking medicine: independent Managing money: independent PHQ-9 Over the last 2 weeks, how often have you been bothered by any of the following problems? 1. Little interest or pleasure in doing things: not at all 2. Feeling down, depressed, or hopeless: not at all 3. Trouble falling or staying asleep, or sleeping too much: not at all 4. Feeling tired or having little energy: not at all 5. Poor appetite or overeating: not at all 6. Feeling bad about yourself - or that you are a failure or have let yourself or your family down: not at all 7. Trouble concentrating on things, such as reading the newspaper or watching television: not at all 8. Moving or speaking so slowly that other people could have noticed. Or the opposite - being so fidgety or restless that you have been moving around a lot more than usual: not at all 9. Thoughts that you would be better off or of hurting yourself in some way: not at all Total score: 0 Depression Screening Interpretation: Negative Depression Screening Done: Yes 69651 - PHQ-9 Billing: Yes Source: Developed by Drs. Compa Ugarte, Millie Escalona, Ramirez Matos and colleagues, with an educational victoria from [employer]. PHQ-2/PHQ-9 PHQ-2 Over the last 2 weeks, how often have you been bothered by any of the following problems? 1. Little interest or pleasure in doing things: not at all 2. Feeling down, depressed, or hopeless: not at all Total score: 0 If score is 3 or greater, continue 3. Trouble falling or staying asleep, or sleeping too much: not at all 4. Feeling tired or having little energy: not at all 5. Poor appetite or overeating: not at all 6. Feeling bad about yourself - or that you are a failure or have let yourself or your family down: not at all 7. Trouble concentrating on things, such as reading the newspaper or watching television: not at all 8. Moving or speaking so slowly that other people could have noticed. Or the opposite - being so fidgety or restless that you have been moving around a lot more than usual: not at all 9. Thoughts that you would be better off or of hurting yourself in some way: not at all Total score: 0 0-4 None-Minimal, 5-9 Mild, 10-14 Moderate, 15-19 Moderately Severe, 20-27 Severe Source: Developed by Drs. Compa Ugarte, Millie Escalona, Ramirez Matos and colleagues, with an educational victoria from [employer]. Thrive Questionnaire Date Thrive assessed: 09/26/24 I am a: Patient What is your living situation today?: I have a steady place to live Within the past 12 months, did the food you bought not last and you didn't have the money to get more?: Never true Within the past 12 months, did you worry whether your food would run out before you got money to buy more?: Never true Do you have trouble paying for medicines?: No Do you have trouble getting transportation to medical appointments?: No Do you have trouble paying your heating and electricity bill?: No Do you have trouble taking care of your child, family member or friend?: No Do you have trouble with day-to-day activities such as bathing, preparing meals, shopping, managing finances, etc.?: No Are you currently unemployed and looking for a job?: No Are you interested in more education?: No Please select the resources that you would like help with: None Currently or been in a relationship where the following occur: No concerns reported THRIVE Score: 0 SRIKANTH-7 AMB Questionnaire SRIKANTH-7 Date SRIKANTH - 7 assessed: 09/26/24 Feeling nervous, anxious, or on edge: 0 = Not at all Not being able to stop or control worryin = Not at all Worrying too much about different things: 0 = Not at all Trouble relaxin = Not at all Being so restless that it is hard to sit still: 0 = Not at all Becoming easily annoyed or irritable: 0 = Not at all Feeling afraid as if something awful might happen: 0 = Not at all Total SRIKANTH-7 score (0-4 normal; 5-9 mild; 10-14 moderate; 15-21 severe): 0 Source: Developed by Drs. Compa Ugarte, Millie Escalona, Ramirez Matos and colleagues, with an educational victoria from [employer]. SRIKANTH-7 Assessment Billing SRIKANTH-7 Assessment Tool: SRIKANTH-7 Assessment 87143 Review of Systems Const Denies chills, Denies fatigue, Denies fever(s) and Denies headache(s) ENT Denies dysphagia, Denies dizziness, Denies otalgia, Denies headache(s), Denies neck pain, Denies odynophagia and Denies sore throat Card Denies chest pain, Denies palpitations and Denies dyspnea Resp Denies chest congestion, Denies cough and Denies dyspnea GI Denies abdominal pain, Denies constipation, Denies dysphagia, Denies heartburn, Denies diarrhea, Denies nausea, Denies odynophagia and Denies vomiting Denies difficulty voiding, Denies nocturia, Denies dysuria and Denies urinary urgency Musc Denies back pain, Denies neck pain and Reports numbness (constant - in both feet) Skin/Breast Denies rash Neuro Denies dizziness, Denies headache(s) and Reports numbness (constant - in both feet) Endo Denies fatigue and Denies palpitations Aller/Immun Reports seasonal rhinorrhea Physical Exam Vital Signs: Last Vital Signs Pulse 71 09/26/24 09:28 BP 128/86 09/26/24 09:28 Pulse Ox 99 09/26/24 09:28 Oxygen Delivery Method Room Air 09/26/24 09:28 BMI result Body Mass Index 29.8 IPPE/AWV: Balance Romberg Yes . Tandem walk No . Walk and Turn No . Rise from sit to stand Yes . Vision Corrective lens No Vision screen pass Hearing Whisper test pass . Urinary incont. no. EKG Not clinically necessary Const General: no acute distress and alert Orientation/consciousness: patient oriented x3 HEENT Ears: TM's normal bilaterally and EAC's normal Throat: Yes posterior oropharynx normal and Yes tonsils normal (no TP congestion noted) Neck Neck: Yes supple and No lymphadenopathy Thyroid: Thyroid normal Resp Auscultation: clear to auscultation bilaterally, no rales and no wheezes Cardio Rate: regular rate Rhythm: regular rhythm Heart sounds: no murmurs GI Palpation (GI): Soft to palpation and nontender Auscultation: normal bowel sounds General: Yes no CVA tenderness Back/Spine/Pelvis Back: no CVA tenderness Thoracic/Lumbar Spine: No lumbar spinal tenderness Skin Rashes: no rashes Neuro General: patient oriented x3, moves all extremities and no focal motor deficits Cognition (Neuro): normal cognition Extrem General: Yes no clubbing, cyanosis or edema Psych Thought process: Normal thought process present Results Reviewed Results Reviewed: Laboratory Tests 09/22/24 09/22/24 10:29 10:36 WBC 3.4 L Hgb 10.9 L Hct 33.0 L Plt Count 193 Sodium 141 Potassium 3.9 Creatinine 0.69 Estimated GFR > 60 Fasting Glucose 103 H Hemoglobin A1c % 5.6 Calcium 9.1 D AST 22 ALT 14 Triglycerides 51 Cholesterol 141 LDL Cholesterol, Calc 82 HDL Cholesterol 49 25-OH Vitamin D Total 49.8 TSH 1.08 Ur Specific [place] 1.010 Urine Protein Negative Urine Glucose (UA) Negative Urine Blood Negative Urine Nitrite Negative Ur Leukocyte Esterase Trace H Assessment & Plan Assessment & Plan (1) Medicare annual wellness visit, subsequent: Code(s): Z00.00 - Encounter for general adult medical examination without abnormal findings Plan: HRA form completed and discussed with patient; form will be scanned into patient's chart She is currently due for repeat colonoscopy (2 years recall) and has an appointment with Dr. Jain tomorrow to discuss this She is up-to-date with her annual mammogram and BMD screening - gets them done at [facility] and she will be contacting her cash applications manager to schedule her annual pap smear and director pharmacy services exam JULIAN (2) Benign essential hypertension: Code(s): I10 - Essential (primary) hypertension Plan: Reinforced low sodium diet - goal is systolic BP of 120 mm or less Continue Labetalol 200 mg BID She was also on Spironolactone-HCTZ 25-25 mg QD but as she was experiencing rec urrent symptoms of orthostasis that have been occurring consistently when her systolic BP readings drop down to 100 mm or less, we eliminated her HCTZ component and just had her continue on Spironolactone 25 mg QD alone and this seems to have to addressed her dizziness Patient is instructed to continue monitoring her blood pressure closely (3) Pure hypercholesterolemia: Code(s): E78.00 - Pure hypercholesterolemia, unspecified Plan: Results of her labs done last week reviewed and discussed with patient Reinforced low cholesterol diet Continue Atorvastatin 10 mg QD Will have patient recheck her labs and fasting lipids again in 1 year before she returns for her appointment next year (4) Impaired fasting glucose: Code(s): R73.01 - Impaired fasting glucose Plan: Hgb1c was normal at 5.6% although her FBS remains slightly elevated at 103 mg/dl on her recent labs Reinforced low calorie/low carb diet, exercise as tolerated (5) Lymphedema of right arm: Code(s): I89.0 - Lymphedema, not elsewhere classified Plan: States that her arm symptoms have been adequately managed/controlled with the use of her lymphedema sleeve PRN and that her oral diuretics also help keep her swelling down (6) Lumbar degenerative disc disease: Code(s): M51.36 - Other intervertebral disc degeneration, lumbar region Qualifiers: Disc-related pain type: discogenic back pain only Qualified Code(s): M51.360 - Other intervertebral disc degeneration, lumbar region with discogenic back pain only Plan: Reinforced activity and weight-lifting restrictions to minimize aggravating her low back pain (7) 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 She is S/P breast conserving surgery (right breast lumpectomy with sentinel node evaluation in May 2010 and completion of axillary dissection in June 2010 showing 0/5 nodes involved with tumor), external beam radiation to the right breast and supraclavicular fossa from 11/21/2010 to 01/03/2011 and dose- dense AC followed by Taxol She has completed 10 years of adjuvant Letrozole from 12/2010 to 11/2020 and also received zoledronic acid for 2 years Follow-up with oncology as scheduled for continuing surveillance and has been advised that although her situation is favorable, hormone receptor positive breast cancer can recur even up to 20-30 years later and she should continue to report any new or concerning symptoms She is up-to-date with her annual mammogram and had a negative breast ultrasound last year; will be getting a repeat mammogram and ultrasound again this year She was previously recommended to undergo breast MRI but she was not able to get it done due to claustrophobia (8) 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 8977C>T - identified in 2019 Because of her MATHEUS mutation She is being followed closely with annual mammogram and breast ultrasound; is unable to undergo breast MRI due to claustrophobia Is again advised that ovarian cancer risk is estimated to be approximately 3%. 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 and December 2018 Has a strong family Hx of melanoma - father, mother, brother and sister all had Hx of melanoma, along with other different types of cancers Follow up with dermatology regularly as scheduled for continuing surveillance (10) Allergic rhinitis: Code(s): J30.9 - Allergic rhinitis, unspecified Qualifiers: Allergic rhinitis seasonality: unspecified Allergic rhinitis trigger: unspecified Qualified Code(s): J30.9 - Allergic rhinitis, unspecified Plan: Continue Fexofenadine 60 mg BID PRN (11) Vitamin D deficiency: Code(s): E55.9 - Vitamin D deficiency, unspecified Plan: Corrected - she has been advised that her Vitamin D level was very high recently and she should cut back on her Vitamin D supplements for now to just once or twice a week (12) Obesity (BMI 30-39.9): Code(s): E66.9 - Obesity, unspecified Plan: Reinforced diet/exercise as tolerated/lose weight Plan To return in 1 year for her next annual medicare wellness exam AND follow up visit Orders: Orders Complete Blood Count Auto Diff 1 Year D64.9 - Anemia, unspecified Comprehensive [place]. Panel Fast 1 Year E78.00 - Pure hypercholesterolemia, unspecified TSH reflex Free T4 1 Year E78.00 - Pure hypercholesterolemia, unspecified UA CC w/rflx Micro + Cult 1 Year R30.0 - Dysuria Vitamin D 25-OH Total 1 Year E55.9 - Vitamin D deficiency, unspecified Lipid Panel 1 Year E78.00 - Pure hypercholesterolemia, unspecified Vitamin B12 and Folate 1 Year E53.8 - Deficiency of other specified B group vitamins Hemoglobin A1c 1 Year R73.01 - Impaired fasting glucose Quality Reporting (2019) Depression/Bipolar (159/160/161/177) PHQ-9: Total score: 0 Coding Level of Care Code Medicare Subsequent (G0439) Est Pt Level 4 (39412) Diagnoses Medicare annual wellness visit, subsequent Z00.00 Benign essential hypertension I10 Pure hypercholesterolemia E78.00 Impaired fasting glucose R73.01 Lymphedema of right arm I89.0 Degeneration of intervertebral disc of lumbar region with discogenic back pain M51.360 Disc-related pain type: discogenic back pain only Ductal carcinoma in situ (DCIS) of right breast with microinvasive component C50.911 Laterality: right 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
--- OUTSIDE RECORDS SUMMARY | 2024-09-26 09:34 | XMS_ITS | Patient Health Record ---
Author Organization [facility] Address [address] [place] [address] Care Team Providers Care Animal Ride Attendant Name Role Phone Demetris BRO, Les Primary Care Provider Compa Casillas Unavailable [phone] Allergies Allergen (clinical drug ingredient) Drug/Non Drug [...] Problem Status W/U Status Risk Notes Problem [id number] Encounter for screening for malignant neoplasm of colon (Z12.11) Active confirmed Problem 595331534 History of adenomatous polyp of colon (Z86.010) Active confirmed Problem 775959631 High risk medications (not anticoagulants) long-term use (Z79.899) Active confirmed Plan Of Treatment Pending Test Test Name Order Date GI BIOPSY 12/14/2019 Future Test Test Name Order Date COLONOSCOPY 10/26/2014 COLONOSCOPY 12/08/2019 Next Appt Details Provider Name:Compa Jain , 09/27/2024 09:10:00 AM, [address], [address], [place], [address], Insurance Providers Payer Name Payer Address Payer Phone Subscriber Number Group Number Insured Name Patient Relationship to Insured Coverage Start Date Coverage End Date MEDICARE OF [place] [address] [place] [address] [id number] SALVADOR ERICKSON Self - patient is the insured [facility] [address] [place], [place] [id number] [phone] [id number] SALVADOR ERICKSON Self - patient is the insured Medical (General) History Medical History History ICD Code Screening colonoscopy 12-18-19 04--neg. except for sigmoid diverticulosis and internal/external hemorrhoids Hypertension Right-sided breast cancer 04/2010-lumpec franklyn, XRT, chemo- Denies [place],DM,CVA,Lung disease,renal dise ase Lymphedema in right arm Colonoscopy in 12/2014-1 small tubular ad enoma removed Surgical History Surgery Date(Month/Year) Lumpectomy, right breast--as above Cyst removal Skin cancers-squamous and spindle cell
== END 2024-09-26 10:31 | disposition home or self-care (01) ==
LOC: HO.HMCH 09:20
PROVIDERS: PCP Internal Medicine; Visit Provider Internal Medicine
DX: Z00.00 Encounter for general adult medical examination without abnormal findings (principal); I10 Essential (primary) hypertension; C50.911 Malignant neoplasm of unspecified site of right female breast; C50.919 Malignant neoplasm of unspecified site of unspecified female breast; E78.00 Pure hypercholesterolemia, unspecified; R73.01 Impaired fasting glucose; I89.0 Lymphedema, not elsewhere classified; M51.360 Other intervertebral disc degeneration, lumbar region with discogenic back pain only; C44.90 Unspecified malignant neoplasm of skin, unspecified; J30.9 Allergic rhinitis, unspecified; E55.9 Vitamin D deficiency, unspecified; E66.9 Obesity, unspecified

== ENCOUNTER → 2024-09-26 09:19 | Outpatient (BNVA) | payer MEDICARE, BC, SELFPAY | PROVIDERS: PCP Internal Medicine; Visit Provider Internal Medicine | DX: Z00.01 Encounter for general adult medical examination with abnormal findings (principal); I10 Essential (primary) hypertension; E78.00 Pure hypercholesterolemia, unspecified; R73.01 Impaired fasting glucose; I89.0 Lymphedema, not elsewhere classified; M51.360 Other intervertebral disc degeneration, lumbar region with discogenic back pain only; C50.911 Malignant neoplasm of unspecified site of right female breast; C44.90 Unspecified malignant neoplasm of skin, unspecified; J30.9 Allergic rhinitis, unspecified; E55.9 Vitamin D deficiency, unspecified; E66.9 Obesity, unspecified; Z68.29 Body mass index [BMI] 29.0-29.9, adult; Z71.3 Dietary counseling and surveillance | CPT/HCPCS: 96127; 99212 ==

== ENCOUNTER 2024-12-16 10:17 | Day surgery (SDC) | payer MEDICARE, BC, SELFPAY ==
--- OUTSIDE RECORDS SUMMARY | 2024-11-03 08:34 | XMS_ITS | Patient Health Record ---
Author Organization [facility] Address [address] [place] [address] Care Team Providers Care Director Of Bands Name Role Phone Demetris BRO, [place] Primary Care Provider Compa Casillas Unavailable [phone] Allergies Allergen (clinical drug ingredient) Drug/Non Drug Allergy documented on EMR Reaction Allergy Type Onset Date Status surgical tape (uncoded) Unknown Allergy Active Reason For Referral No Information Medications Medication SIG (Take, Route, Frequency, Duration) Notes Start Date End Date Status Fish Oil 1000 MG 1 capsule Orally Onc e a day Active Letrozole 2.5 MG 1 tablet Orally Once a day Active Labetalol HCl 200 MG Orally Active Losartan Potassium 50 MG 1 tablet Orally Once a day Active Spironolactone 25 MG TAKE 1 TABLET DAILY (STOP SPIRONOLACTONE-HCTZ 25-25MG) Oral for 90 Days Active Atorvastatin Calcium 10 MG TAKE 1 TABLET BY MOUTH DAILY Oral for 30 Active Indy Active Calcium 600 + D 600-200 MG-UNIT Orally Active Vitamin D 2000 UNIT Orally Active Immunizations Vaccine Route Administration Date Status Comme nts Influenza Unknown 02/09/2019 Administered Problems Problem Type SNOMED Code ICD Code Onset Dates Problem Status W/U Status Risk Notes Problem [id number] Encounter for screening for malignant neoplasm of colon (Z12.11) Active confirmed Problem 660250088 History of adenomatous polyp of colon (Z86.010) Active confirmed Problem 257889414 High risk medications (not anticoagulants) long-term use (Z79.899) Active confirmed Vital Signs Blood pressure diastolic 77 mm Hg 09/27/2024 Height 64 in 09/27/2024 Blood pressure systolic 111 mm Hg 09/27/2024 Weight 168 lbs 09/27/2024 BMI 28.83 kg/m2 09/27/2024 Procedures Procedure Date Ordered Date Performed Result Body Sit e COLONOSCOPY 09/27/2024 N/A Encounters Encounter Location Date Provider Diagnosis [facility] [address] [place] [address] 09/27/2024 Compa Jain History of adenomato us polyp of colon Z86.010 ; High risk medications (not anticoagulants) long-term use Z79.899 and Encounter for screening for malignant neoplasm of colon Z12.11 Assessments Encounter Date Diagnosis (ICD Code) Assessment Notes Treatment Notes Treatment Clinical Notes Section Notes 09/27/2024 History of adenomatous polyp of colon (ICD-10 - Z86.010) Overall, Salvador appears well. Given her age, good clinical appearance, history of tubular adenomas of the colon, and her last colonoscopy being almost 5 years ago, I did recommend a follow-up colonoscopy for further screening purposes. We did review the rationale for that in regard to colon cancer prevention. Full consent is obtained for this, including risks of bleeding and perforation. The procedure will be done with monitored anesthesia care. She was given the below instructions regarding adjustment of her medications for the procedure. Salvador was comfortable with this plan. Thank you again for allowing me to participate in Salvador's care. I shall continue to keep you advised of her progress. 09/27/2024 High risk medications (not anticoagulants) long-term use (ICD-10 - Z79.899) Overall, Salvador appears well. Given her age, good clinical appearance, history of tubular adenomas of the colon, and her last colonoscopy being almost 5 years ago, I did recommend a follow-up colonoscopy for further screening purposes. We did review the rationale for that in regard to colon cancer prevention. Full consent is obtained for this, including risks of bleeding and perforation. The procedure will be done with monitored anesthesia care. She was given the below instructions regarding adjustment of her medications for the procedure. Salvador was comfortable with this plan. Thank you again for allowing me to participate in Salvador's care. I shall continue to keep you advised of her progress. 09/27/2024 Encounter for screening for malignant neoplasm of colon (ICD-10 - Z12.11) Overall, Salvador appears well. Given her age, good clinical appearance, history of tubular adenomas of the colon, and her last colonoscopy being almost 5 years ago, I did recommend a follow-up colonoscopy for further screening purposes. We did review the rationale for that in regard to colon cancer prevention. Full consent is obtained for this, including risks of bleeding and perforation. The procedure will be done with monitored anesthesia care. She was given the below instructions regarding adjustment of her medications for the procedure. Salvador was comfortable with this plan. Thank you again for allowing me to participate in Salvador's care. I shall continue to keep you advised of her progress. Plan Of Treatment Pending Test Test Name Order Date COLONOSCOPY 09/27/2024 Future Test Test Name Order Date COLONOSCOPY 10/26/2014 COLONOSCOPY 12/08/2019 Next Appt Details Provider Name:Compa Jain , 12/16/2024 12:50:00 PM, [address] [place] [address] , [place], [place], [phone], Insurance Providers Payer Name Payer Address Payer Phone Subscriber Number Group Number Insured Name Patient Relationship to Insured Coverage Start Date Coverage End Date MEDICARE OF [place] [address] [place] [address] [id number] SALVADOR ERICKSON Self - patient is the insured [facility] [address] [place], [place] [id number] GEORGINA SALVADOR Self - patient is the insured Medical (General) History Medical History History ICD Code Screening colonoscopy 12-18-19 04--neg. except for sigmoid diverticulosis and internal/external hemorrhoids Hypertension Right-sided breast cancer 04/2010-lumpec franklyn, XRT, chemo- Denies [place],DM,CVA,Lung disease,renal dise ase Lymphedema in right arm Colonoscopy in 12/2014-1 small tubular ad enoma removed Colonoscopy 12/2019 with a small tubular adenoma removed Surgical History Surgery Date(Month/Year) Skin cancers-squamous and spindle cell Cyst removal Lumpectomy, right breast--as above
[2024-12-14 14:31] VITALS: BMI 28.8
--- NOTE | 2024-12-15 08:53 | HO.ANESPROP2 ---
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) Pure hypercholesterolemia (Acute) Benign essential hypertension (Acute) Past Medical History Medical History Lymphedema Obesity (BMI 30-39.9) Vitamin D deficiency Skin cancer Spindle cell type atypical fibroxanthoma Pure hypercholesterolemia Benign essential hypertension 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 History of right breast cancer 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 Family History Family History Mother Melanoma Father Lung cancer Sister Breast cancer Brother Prostate cancer Surgical History Surgical History (Updated 12/16/24 @ 10:40 by Mey Cheung RN) History of lumpectomy of right breast History of colonoscopy History of tonsillectomy Social History Social History Housing: House Alcohol intake: current Alcohol intake frequency: holidays/special occasions only Patient Tobacco Use Status: Never used Tobacco e-Cigarette/Vaping Use: Never Used Use of substances other than those prescribed or required for medical reasons: No Advance Directives: No Advance Directives Information Provided: Yes Patient : No : No Poor oral hygiene: No service: No Current occupational status: retired Current occupational exposures/hazards: No Cognitive needs: No Hearing needs: No Vision needs: No Meds Allergies Allergy/AdvReac Type Severity Reaction Status Date / Time adhesive tape Allergy Intermediate Itching Verified 12/14/24 14:29 Home Medications ?Medication ?Instructions ?Recorded ?Confirmed ?Last Taken ?Type cholecalciferol (vitamin D3) 50 50 mcg PO DAILY 12/26/20 12/14/24 Unknown History mcg (2,000 unit) capsule fexofenadine 60 mg tablet (Indy 60 mg PO BID 12/26/20 12/14/24 Unknown History Allergy) omega-3 fatty acids 1,000 mg 1,000 mg PO DAILY 12/26/20 12/14/24 Unknown History capsule (Fish Oil Concentrate) losartan 50 mg tablet 50 mg PO DAILY 01/26/24 12/14/24 Unknown History B6 35 mg-levomefolate 3 1 cap PO BID 09/26/24 09/26/24 Unknown History mg-mecobalam 2 [id number] capsule del rel (EB-N6 DR) Exam Height,Weight and Vital Signs: Height 5 ft 4 in Weight 76.204 kg Assessment and Plan Assessment Anesthesia Assessment: Chart Reviewed Documented by User: Vamshi Stewart MD 12/16/24 12:05 REPLACED BY [facility] Past Medical History Medical History Lymphedema Obesity (BMI 30-39.9) Vitamin D deficiency Skin cancer Spindle cell type atypical fibroxanthoma Pure hypercholesterolemia Benign essential hypertension 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 History of right breast cancer 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 Functional capacity: independent ambulation Patient : No Family History Family History Mother Melanoma Father Lung cancer Sister Breast cancer Brother Prostate cancer Family history of problems with anesthesia: No Surgical History Surgical History (Updated 12/16/24 @ 10:40 by Mey Cheung RN) History of lumpectomy of right breast History of colonoscopy History of tonsillectomy History of Problems with Anesthesia: No Social History Social History Housing: House Alcohol intake: current Alcohol intake frequency: holidays/special occasions only Patient Tobacco Use Status: Never used Tobacco e-Cigarette/Vaping Use: Never Used Use of substances other than those prescribed or required for medical reasons: No Advance Directives: No Advance Directives Information Provided: Yes Patient : No : No Poor oral hygiene: No service: No Current occupational status: retired Current occupational exposures/hazards: No Cognitive needs: No Hearing needs: No Vision needs: No Meds Allergies Allergy/AdvReac Type Severity Reaction Status Date / Time adhesive tape Allergy Intermediate Itching Verified 12/14/24 14:29 Home Medications ?Medication ?Instructions ?Recorded ?Confirmed ?Last Taken ?Type cholecalciferol (vitamin D3) 50 50 mcg PO DAILY 12/26/20 12/14/24 Unknown History mcg (2,000 unit) capsule fexofenadine 60 mg tablet (Indy 60 mg PO BID 12/26/20 12/14/24 Unknown History Allergy) omega-3 fatty acids 1,000 mg 1,000 mg PO DAILY 12/26/20 12/14/24 Unknown History capsule (Fish Oil Concentrate) losartan 50 mg tablet 50 mg PO DAILY 01/26/24 12/14/24 Unknown History B6 35 mg-levomefolate 3 1 cap PO BID 09/26/24 09/26/24 Unknown History mg-mecobalam 2 [id number] capsule del rel (EB-N6 DR) Exam Exam Date and Time: 12/16/24 Airway TM Dist: >3cm Neck ROM: Full Loose/Missing/Broken Teeth: No Heart: rrr Lungs: cta Other: normal Assessment and Plan Final Anesthetic Review Family History of Problems with Anesthesia: No History of Problems with Anesthesia: No NPO: Yes ASA Class: II Final Preanesthetic Review: No Changes in Pt Med Stat, Meds/Allgs Chart Reviewed, Consent Obtained/Reviewed and Anes Risks/Benef Reviewed Patient Risk: Low Procedure Risk: Low Anesthetic Plan Anesthetic Plan: MAC: Disposition: Standard PACU
[2024-12-16 10:40] VITALS: BMI 28.4
[2024-12-16 10:55] VITALS: BP 176/77; PULSE 63; RESP 16; TEMP 37.1; O2SAT 99
[2024-12-16] MEDS: Lactated Ringers 1,000 ML 100 ML IVCONT (11:03)
--- NOTE | 2024-12-16 13:12 | P.BOP_ITS ---
Brief Operative Note Date of Service: 12/16/24 Pre-op diagnosis: Screening Post-op diagnosis: other (Diverticulosis) Procedure: Colonoscopy to the cecum and TI Surgeon: Compa Jain MD Anesthesia: MAC Was an Upper Cutter Machine used for this Procedure?: No Estimated blood loss (mL): 0 Pathology: none sent Condition: stable Disposition: PACU
[2024-12-16 13:13] VITALS: BP 153/119; PULSE 59; RESP 17; TEMP 36.2; O2SAT 97
[2024-12-16 13:16] VITALS: BP 131/72; PULSE 61; RESP 17; O2SAT 97
[2024-12-16 13:27] VITALS: BP 139/71; PULSE 58; RESP 16; TEMP 36.6; O2SAT 98
--- NOTE | 2024-12-16 13:41 | OP_ITS ---
DATE OF SERVICE: 12/16/2024 SURGEON: Compa Jain MD INDICATIONS: The patient presents for followup of colorectal cancer screening in regard to personal history of tubular adenomas of the colon. Full consent has been obtained from her for this, including risks of bleeding and perforation. PREOPERATIVE DIAGNOSIS: POSTOPERATIVE DIAGNOSIS: PROCEDURE PERFORMED: Colonoscopy to the cecum and terminal ileum. ESTIMATED BLOOD LOSS: COMPLICATIONS: ANESTHESIA: Medication used, monitored anesthesia care. ASSISTANTS: SPECIMENS: PREOPERATIVE DIAGNOSES: Colorectal cancer screening and personal history of tubular adenomas of the colon. POSTOPERATIVE DIAGNOSES: Colorectal cancer screening and personal history of tubular adenomas of the colon, diverticulosis, and internal hemorrhoids. DESCRIPTION OF PROCEDURE: The patient was placed in the left lateral decubitus position. The digital rectal exam revealed no abnormalities, although there was what appeared to be a raised mole on the left side of the perianal area. The Keko video pediatric colonoscope was entered into the rectum and advanced easily to the cecum. Once in the cecum, I did identify normal-appearing cecal pouch with appendiceal orifice and a normal-appearing ileocecal valve. The terminal ileum was cannulated and appeared normal. The scope was withdrawn back in the colon. The entire cecum and ileocecal valve appeared normal. The scope was slowly withdrawn assessing all mucosal surfaces carefully. Preparation was excellent. I did not visualize any sign of polyps, colitis, nor angiodysplasia. There was a mild amount of sigmoid diverticulosis. In the rectum, scope was retroflexed visualizing internal hemorrhoids, but no other pathology. The rectal mucosa appeared normal. Scope was straightened and withdrawn from the patient. She tolerated the procedure well, and was returned to the recovery area in stable condition. IMPRESSION: 1. Diverticulosis. 2. Internal hemorrhoids. PLAN: She should have a repeat colonoscopy in 5 years. She was advised that she could resume her fish oil today. In regard to the finding of the mole in the perianal area, I did recommend that she have that removed as I am not sure whether she even knows about it given its location and whether or not it has changed. This has been communicated to her family, and she was given written instructions in that regard as well. I will otherwise see her in 5 years for a followup colonoscopy. MD REFUGIO Mg/NICCI / [id number] MTDD
== END 2024-12-16 14:01 | disposition home or self-care (01) ==
PROVIDERS: PCP Internal Medicine; Visit Provider Internal Medicine
PROC: 0DJD8ZZ Inspection of Lower Intestinal Tract, Via Natural or Artificial Opening Endoscopic (ICD-10-PCS; CPT 45378; principal; 2024-12-16 11:40)
DX: Z12.11 Encounter for screening for malignant neoplasm of colon (principal); Z86.0101 Personal history of adenomatous and serrated colon polyps; K57.30 Diverticulosis of large intestine without perforation or abscess without bleeding; K64.8 Other hemorrhoids; D22.5 Melanocytic nevi of trunk; I10 Essential (primary) hypertension; Z85.3 Personal history of malignant neoplasm of breast; I89.0 Lymphedema, not elsewhere classified; Z85.828 Personal history of other malignant neoplasm of skin; Z92.21 Personal history of antineoplastic chemotherapy; Z92.3 Personal history of irradiation; Z98.890 Other specified postprocedural states
CPT/HCPCS: G0105; J2003; J2250; J2704; J3010